=== PATIENT | male | born 1945 | race Caucasian/White ===

== ENCOUNTER 2016-11-24 17:20 | Inpatient (IN) | payer OTHER, MEDICARE ==
[~2016-11-24] VITALS: Ht 168.9 cm; Wt 72.0 kg
[2016-11-24] VITALS (7 sets, daily range): BP systolic 124–161; BP diastolic 60–84; PULSE 59–71; RESP 18–20; TEMP 96–98; O2SAT 95–99
[~2016-11-24 17:20] MED LIST: ASPI81TA82 PO; BACT800T5 PO; DOXY100T PO; ENAL5TAB98 PO; FURO1TAB93 PO; HYDR-3533 PO; IPRAAER INH; METO50TA PO; NIAC500T18 PO; ROSU40 PO; SPIRCAP INH; SYNT88TA PO
[2016-11-24] MEDS ORDERED: METO50TA PO (17:32)
[2016-11-24] MEDS ORDERED: ASPI1TAB69 PO (17:32)
[2016-11-24] MEDS ORDERED: ROSU20 PO (17:32)
[2016-11-24] MEDS ORDERED: ENAL5TAB PO (17:32)
[2016-11-24] MEDS ORDERED: FURO1TAB60 PO (17:32)
[2016-11-24] MEDS ORDERED: SYNT88TA PO (17:32)
[2016-11-24] MEDS ORDERED: NIAC500T5 PO (17:32)
[2016-11-24] MEDS ORDERED: HYDR-3533 PO (17:32)
[2016-11-24] MEDS ORDERED: IPRAAER INH (17:32)
[2016-11-24] MEDS ORDERED: SPIRCAP INH (17:32)
[2016-11-24] MEDS ORDERED: SODIUM CHLORIDE 0.9% FLUSH 10 ML FLUSH IVF PRN (17:45)
--- NOTE | 2016-11-24 17:48 | PD ---
HPI Chief Complaint: Respiratory Symptoms Time Seen by Provider: 17:43 Travel History International Travel<30 days: No Contact w/Intl Traveler<30days: No Traveled to known affect area: No History of Present Illness HPI 71-year-old male with history of cardiac issues status post CABG, hypertension, COPD, CHF, presents to the ER today because he states that he has been having syncopal episodes with dyspnea on exertion, states that it had occurred several days ago and he had talked to his primary care physician and was told to come to the ER. He is continued to have coughing and dyspnea on exertion which she states has become a baseline for him. He denies any current chest pains, fevers , or any other symptoms. Modifying Factors: None Associated Signs & Symptoms: Dyspnea on exertion, shortness of breath, syncope, coughing Risk Factors: Cardiac history, COPD, CHF PFSH Past Medical History Arthritis: Yes Asthma: No Autoimmune Disease: No Blood Disorders: Yes Anxiety: Yes Depression: No Heart Rhythm Problems: Yes Cancer: No Cardiac Catheterization: Yes Cardiovascular Problems: Yes (ACID) High Cholesterol: Yes Chemotherapy: No Chest Pain: Yes Congestive Heart Failure: Yes COPD: Yes Cerebrovascular Accident: No Coronary Artery Disease: Yes Diabetes: Yes Patient Takes Glucophage: No Diminished Hearing: No Deep Vein Thrombosis: Yes Endocrine: Yes Gastrointestinal Disorders: Yes GERD: No Glaucoma: No Genitourinary: No Headaches: No Hepatitis: No Hiatal Hernia: No Hypertension: Yes Immune Disorder: No Implanted Vascular Access Dvce: Yes Kidney Stones: No Musculoskeletal: Yes (CRAMPS IN LEGS) Neurologic: No Psychiatric: No Reproductive: No Respiratory: Yes (COPD) Immunizations Current: Yes Myocardial Infarction: Yes Radiation Therapy: No Renal Failure: No Seizures: No Sickle Cell Disease: No Sleep Apnea: No Thyroid Disease: Yes Ulcer: No ?: Not Past Surgical History Abdominal Surgery: Yes (RIGHT INGUINAL HERNIA REPAIR) AICD: No Arteriovenous Shunt: No Body Medical Devices: PACER/DEFIBRILLATOR Cardiac Surgery: Yes (CARDIAC BIPASS 2004,DEFIB/PACER) Coronary Artery Bypass Graft: Yes Ear Surgery: No Endocrine Surgery: No Eye Surgery: No Genitourinary Surgery: No Gynecologic Surgery: No Joint Replacement: No Oral Surgery: No Pacemaker: Yes (V-[address] [facility] [facility] #[id number]; DR.HANSCY MANE) Thoracic Surgery: Yes (MULTI-VESSEL CABG) Other Surgery: Yes (HERNIA OPEN HEART, ) Social History Alcohol Use: Yes (OCCASSIONAL) Tobacco Use: No (quit 2012) Substance Use: No Allergies-Medications (Allergen,Severity, Reaction): Coded Allergies: MRI PRECAUTION (Verified Adverse Reaction, Severe, CARDIAC PACEMAKER-07/06-ABD-JA, 11/04/15) Reported Meds & Prescriptions Reported Meds & Active Scripts Active Reported Spiriva Handihaler (Tiotropium Inh) 18 Mcg Cap 18 Mcg INH DAILY 1 capsule = 18 mcg Synthroid (Levothyroxine Sodium) 88 Mcg Tab 88 Mcg PO DAILY Crestor (Rosuvastatin Calcium) 20 Mg Tab 20 Mg PO DAILY Niacin 500 Mg Tab 500 Mg PO DAILY Metoprolol Tartrate 50 Mg Tab 50 Mg PO DAILY Combivent Respimat Inh (Ipratropium-Albuterol Inh) 20-100 Senior Care/Act Aero 1 Puff INH QID Lortab (Hydrocodone-Acetaminophen) 5-325 Mg Tab 1 Tab PO Q6H PRN Lasix (Furosemide) 40 Mg Tab 40 Mg PO DAILY Enalapril (Enalapril Maleate) 5 Mg Tab 5 Mg PO DAILY Aspirin 81 Mg Tabdr 81 Mg PO DAILY Review of Systems Except as stated in HPI: all other systems reviewed are Neg Physical Exam Narrative GENERAL: Well-developed elderly white male patient currently in mild respiratory distress. Awake and oriented 3. SKIN: Focused skin assessment warm/dry. HEAD: Atraumatic. Normocephalic. EYES: Pupils equal and round. No scleral icterus. No injection or drainage. ENT: No nasal bleeding or discharge. Mucous membranes pink and moist. NECK: Trachea midline. Supple. CARDIOVASCULAR: Regular rate and rhythm. No murmur appreciated. RESPIRATORY: Mild accessory muscle use. Breath sounds are decreased throughout but I hear less breath sounds on the left compared to the right, crackles at the left base. GASTROINTESTINAL: Abdomen soft, non-tender, nondistended. Hepatic and splenic margins not palpable. MUSCULOSKELETAL: No obvious deformities. No clubbing. No cyanosis. No edema. NEUROLOGICAL: Awake and alert. No obvious cranial nerve deficits. Motor grossly within normal limits. Normal speech. PSYCHIATRIC: Appropriate mood and affect; insight and judgment normal. Data Data Last Documented VS Vital Signs Date Time Temp Pulse Resp B/P Pulse Ox O2 Delivery O2 Flow Rate FiO2 11/24/16 17:53 66 18 124/60 97 Room Air 11/24/16 17:37 2 11/24/16 17:32 97.9 Orders Complete Blood Count With Diff (11/24/16 17:43) Comprehensive Metabolic Panel (11/24/16 17:43) B-Type Natriuretic Peptide (11/24/16 17:43) Act Partial Throm Time (Ptt) (11/24/16 17:43) Prothrombin Time / Inr (Pt) (11/24/16 17:43) Ckmb (Isoenzyme) Profile (11/24/16 17:43) Troponin I (11/24/16 17:43) Blood Culture (11/24/16 17:43) Iv Access Insert/Monitor (11/24/16 17:43) Electrocardiogram (11/24/16 17:43) Ecg Monitoring (11/24/16 17:43) Oximetry (11/24/16 17:43) Oxygen Administration (11/24/16 17:43) Chest, Single Ap (11/24/16 17:43) Sodium Chloride 0.9% Flush (Ns Flush) (11/24/16 17:45) Consult Cardiology (11/24/16 ) Nitroglycerin 2% Oint (Nitroglycerin 2% (11/24/16 18:45) Furosemide Inj (Lasix Inj) (11/24/16 18:45) (Hub Use Only)Inp Phy Cons/Ref (11/24/16 ) Labs Laboratory Tests Test 11/24/16 17:52 White Blood Count 5.9 TH/MM3 Red Blood Count 5.67 MIL/MM3 Hemoglobin 14.9 GM/DL Hematocrit 47.1 % Mean Corpuscular Volume 83.1 FL Mean Corpuscular Hemoglobin 26.3 PG Mean Corpuscular Hemoglobin 31.7 % Concent Red Cell Distribution Width 16.8 % Platelet Count 148 TH/MM3 Mean Platelet Volume 8.9 FL Neutrophils (%) (Auto) 69.4 % Lymphocytes (%) (Auto) 16.8 % Monocytes (%) (Auto) 6.9 % Eosinophils (%) (Auto) 6.4 % Basophils (%) (Auto) 0.5 % Neutrophils # (Auto) 4.1 TH/MM3 Lymphocytes # (Auto) 1.0 TH/MM3 Monocytes # (Auto) 0.4 TH/MM3 Eosinophils # (Auto) 0.4 TH/MM3 Basophils # (Auto) 0.0 TH/MM3 CBC Comment DIFF FINAL Differential Comment Prothrombin Time 12.0 SEC Prothromb Time International 1.1 RATIO Ratio Activated Partial 27.9 SEC Thromboplast Time Sodium Level 144 MEQ/L Potassium Level 3.6 MEQ/L Chloride Level 108 MEQ/L Carbon Dioxide Level 28.0 MEQ/L Anion Gap 8 MEQ/L Blood Urea Nitrogen 22 MG/DL Creatinine 1.50 MG/DL Estimat Glomerular Filtration 46 ML/MIN Rate Random Glucose 269 MG/DL Calcium Level 8.5 MG/DL Total Bilirubin 0.8 MG/DL Aspartate Amino Transf 23 U/L (AST/SGOT) Alanine Aminotransferase 18 U/L (ALT/SGPT) Alkaline Phosphatase 123 U/L Total Creatine Kinase 59 U/L Troponin I 0.03 NG/ML B-Type Natriuretic Peptide 896 PG/ML Total Protein 6.5 GM/DL Albumin 3.0 GM/DL MDM Medical Decision Making Medical Screen Exam Complete: Yes Emergency Medical Condition: Yes Medical Record Reviewed: Yes Interpretation(s) Initial EKG shows paced rhythm with ST depressions in 2, 3, aVF and V5 through V6. There is a mild ST elevation notable in 1 and aVL. Laboratory Tests Test 11/24/16 17:52 Mean Corpuscular Hemoglobin 26.3 PG (27.0-34.0) Mean Corpuscular Hemoglobin 31.7 % Concent (32.0-36.0) Platelet Count 148 TH/MM3 (150-450) Eosinophils (%) (Auto) 6.4 % (0.0-4.0) Prothrombin Time 12.0 SEC (9.8-11.6) Chloride Level 108 MEQ/L (98-107) Blood Urea Nitrogen 22 MG/DL (7-18) Creatinine 1.50 MG/DL (0.60-1.30) Estimat Glomerular Filtration 46 ML/MIN (>89) Rate Random Glucose 269 MG/DL (74-106) Alkaline Phosphatase 123 U/L (45-117) B-Type Natriuretic Peptide 896 PG/ML (0-100) Albumin 3.0 GM/DL (3.4-5.0) Differential Diagnosis Coughing, dyspnea on exertion, shortness of breath, syncopeworsening COPD exacerbation versus CHF versus pneumonia versus dysrhythmias versus ACS Narrative Course EKG does show some ST depressions and abnormal ST segments in 1 and aVL. Case was discussed with Dr. Phelps who states that considering that the patient is a ventricularly paced, EKG is not reliable indicator of VA and she would not consider this an ST elevation VA. Lab work shows no signs of cardiac enzyme elevations. His BNP is fairly elevated. Patient initially had been given nebulizers by EMS with some improvement in breathing symptoms. At this point, patient was also given Lasix and nitroglycerin in the ER for underlying CHF. My plan would be to admit the patient for further evaluation and treatment of syncope as well. Case is discussed with Dr. Carrasco for admission. Diagnosis Primary Impression: Syncope Additional Impression: Congestive heart failure (CHF) Admitting Information Admitting Physician Requests: Admit Onel Mahmood MD November 24, 2016 17:48
[2016-11-24 18:15] LABS: CHLORIDE 108 MEQ/L (98-107); POTASSIUM 3.6 MEQ/L (3.5-5.1); SODIUM (NA) 144 MEQ/L (136-145)
[2016-11-24 18:19] LABS: ANION GAP 8 MEQ/L (5-15); BLOOD UREA NITROGEN 22 MG/DL (7-18)
[2016-11-24 18:21] LABS: APTT (PATIENT) 27.9 SEC (24.3-30.1); INTERNATIONAL NORMALIZED RATIO 1.1 RATIO
[2016-11-24 18:22] LABS: ALT (GPT) 18 U/L (12-78); AST (GOT) 23 U/L (15-37)
[2016-11-24 18:23] LABS: GLOMERULAR FILTRATION RATE 46 ML/MIN (>89)
[2016-11-24 18:24] LABS: TOTAL BILIRUBIN ADULT 0.8 MG/DL (0.2-1.0)
[2016-11-24 18:25] LABS: ALKALINE PHOSPHATASE 123 U/L (45-117)
[2016-11-24 18:40] LABS: AUTOMATED NEUTROPHIL # 4.1 TH/MM3 (1.8-7.7); BASOPHIL % 0.5 % (0.0-2.0); EOSINOPHIL # 0.4 TH/MM3 (0-0.4); EOSINOPHIL % 6.4 % (0.0-4.0); HEMATOCRIT 47.1 % (39.0-51.0); HEMO FLAGS DIFF FINAL; LYMPH % 16.8 % (9.0-44.0); MEAN CELL VOLUME 83.1 FL (80.0-100.0); MEAN CORPUSCULAR HEMOGLOBIN 26.3 PG (27.0-34.0); MEAN CORPUSCULAR HGB CONC 31.7 % (32.0-36.0); MONO % 6.9 % (0.0-8.0); NEUT % 69.4 % (16.0-70.0); PLATELET COUNT 148 TH/MM3 (150-450); RED BLOOD COUNT 5.67 MIL/MM3 (4.50-5.90); RED CELL DISTRIBUTION WIDTH 16.8 % (11.6-17.2); WHITE BLOOD COUNT 5.9 TH/MM3 (4.0-11.0)
[2016-11-24] MEDS ORDERED: FUROSEMIDE 20 MG/2 ML VIAL IV PUSH ONE (18:45)
[2016-11-24] MEDS ORDERED: NITROGLYCERIN 2% OINT 1 GM PACKET TOPICAL ONE (18:45)
[2016-11-24 18:46] LABS: CREATINE KINASE 59 U/L (39-308)
--- NOTE | 2016-11-24 18:46 | RADHPO ---
EXAM DATE/TIME: 11/24/2016 18:01 [facility] COMPARISON: CHEST SINGLE AP, July 09, 2014, 7:43. INDICATIONS : Shortness of breath. MEDICAL HISTORY : Chronic obstructive pulmonary disease. Congestive heart failure. SURGICAL HISTORY : CABG. Pacemaker. ENCOUNTER: Initial ACUITY: 1 week PAIN SCORE: 0/10 LOCATION: Bilateral cranial FINDINGS: There are postoperative changes of median sternotomy. Pacer leads overlie right atrium and right vent ricle. Cardiomegaly. Minimal interstitial prominence could represent some interstitial edema. No sign ificant effusion. No pneumothorax. CONCLUSION: 1. Minimal interstitial edema. No effusion. No pneumothorax. Cardiomegaly. Norm Lenz MD on November 24, 2016 at 18:38 Board Certified Radiologist. This report was verified electronically.
[2016-11-24] MEDS ORDERED: NALOXONE HCL 0.4 MG/ML AMP IV PRN (20:00)
[2016-11-24] MEDS ORDERED: SODIUM CHLORIDE 0.9% FLUSH 10 ML FLUSH IV FLUSH PRN (20:00)
[2016-11-24] MEDS ORDERED: RESP: IPRATROPIUM 0.5 MG/2.5 ML NEB NEB PRN (20:00)
[2016-11-24] MEDS: RESP: IPRATROPIUM 0.5 MG/2.5 ML NEB NEB SCH (21:26)
[2016-11-24] MEDS: SODIUM CHLORIDE 0.9% FLUSH 10 ML FLUSH IV FLUSH SCH (23:30)
[2016-11-25] VITALS: BP 145/77; PULSE 60; RESP 20; TEMP 97.8; O2SAT 95
[2016-11-25] MEDS ORDERED: GLUCAGON 1 MG/ML VIAL OTHER PRN (00:30)
[2016-11-25] MEDS ORDERED: DEXTROSE 50% IN WATER 50 ML VIAL(D50) IV PRN (00:30)
[2016-11-25] MEDS ORDERED: ENALAPRILAT 2.5 MG/2 ML VIAL IV PUSH PRN (00:30)
[2016-11-25] MEDS ORDERED: METOPROLOL TARTRATE 50 MG TAB PO ONE (00:45)
[2016-11-25] MEDS ORDERED: ACETAMINOPHEN/HYDROcodone 325 MG/5 MG TAB PO PRN (00:45)
[2016-11-25] MEDS ORDERED: POTASSIUM CHLORIDE 20 MEQ CONTROLLED RELEASE TAB PO ONE (01:00)
[2016-11-25] MEDS: RESP: IPRATROPIUM 0.5 MG/2.5 ML NEB NEB SCH ×2 (03:20→09:22)
[2016-11-25 04:00] VITALS: BP 150/89; PULSE 60; RESP 20; TEMP 98; O2SAT 96
[2016-11-25] MEDS ORDERED: LEVOTHYROXINE SODIUM 88 MCG TAB PO SCH (06:00)
[2016-11-25] MEDS: INSULIN ASPART SUPPLEMENTAL SCALE SQ SCH ×2 (06:42→11:00)
[2016-11-25 07:51] LABS: AUTOMATED NEUTROPHIL # 4.5 TH/MM3 (1.8-7.7); BASOPHIL % 0.7 % (0.0-2.0); EOSINOPHIL # 0.5 TH/MM3 (0-0.4); EOSINOPHIL % 6.5 % (0.0-4.0); HEMATOCRIT 46.8 % (39.0-51.0); HEMO FLAGS DIFF FINAL; LYMPH % 19.2 % (9.0-44.0); LYMPHOCYTE # 1.3 TH/MM3 (1.0-4.8); MEAN CELL VOLUME 82.2 FL (80.0-100.0); MEAN CORPUSCULAR HGB CONC 31.7 % (32.0-36.0); MONO % 10.3 % (0.0-8.0); NEUT % 63.3 % (16.0-70.0); PLATELET COUNT 154 TH/MM3 (150-450); RED BLOOD COUNT 5.69 MIL/MM3 (4.50-5.90); RED CELL DISTRIBUTION WIDTH 15.8 % (11.6-17.2)
[2016-11-25 08:00] VITALS: BP 132/83; PULSE 66; RESP 17; TEMP 98.3; O2SAT 93
[2016-11-25 08:00] LABS: POTASSIUM 4.2 MEQ/L (3.5-5.1)
[2016-11-25] MEDS ORDERED: FUROSEMIDE 40 MG/4 ML VIAL IV PUSH SCH (09:00)
[2016-11-25] MEDS ORDERED: FUROSEMIDE 40 MG TAB PO SCH (09:00)
[2016-11-25] MEDS ORDERED: ASPIRIN EC 81 MG TABEC PO SCH (09:00)
[2016-11-25] MEDS ORDERED: POTASSIUM CHLORIDE 20 MEQ CONTROLLED RELEASE TAB PO SCH (09:00)
[2016-11-25] MEDS ORDERED: ENALAPRIL MALEATE 5 MG TAB PO SCH (09:00)
[2016-11-25] MEDS ORDERED: METOPROLOL TARTRATE 50 MG TAB PO SCH (09:00)
[2016-11-25] MEDS ORDERED: ATORVASTATIN 40 MG TAB PO SCH (09:00)
[2016-11-25] MEDS: SODIUM CHLORIDE 0.9% FLUSH 10 ML FLUSH IV FLUSH SCH (09:21)
--- NOTE | 2016-11-25 09:24 | MB ---
cc: ANNA VILLAR MD DATE OF CONSULTATION 11/25/2016 REASON FOR CONSULTATION CHF HISTORY OF PRESENT ILLNESS Mr. Vidal is a 71-year-old [place] who is a patient of my partner. He presented with progressive shortness of breath. He has a known ischemic cardiomyopathy with an EF of 25-30%. The patient reports that he was in [facility] last month and when discharged, he tried to have his relative go to the [place] to get his medications filled, which was unsuccessful. Consequently he has been without some of his medications and again had progressive shortness of breath and marked edema. He notes today that he is essentially back to baseline. He denies any chest pain to me. PAST MEDICAL HISTORY Significant for: 1. CHF 2. COPD 3. Hypertension 4. Does have a history of previous CABG with severe three-vessel yurok disease. He had a patent HINOJOSA to LAD The LAD occluded just distal to the anastomotic site. There was total occlusion of the SVG to the OM and widely patent graft to the PDA in June of 2013. 5. He does not have a history of ICD. OUTPATIENT MEDICATIONS Reported include: 1. Synthroid 2. Crestor 3. Crestor 4. Niacin 5. Metoprolol 6. Combivent 7. Lortab 8. Lasix 9. Enalapril 10. Aspirin REVIEW OF SYSTEMS Except as mentioned in the HPI, all 12 systems are negative. FAMILY HISTORY Noncontributory PHYSICAL EXAM VITAL SIGNS: 98.0, 60, 20, 150/89. GENERAL: In general, he is a well-appearing man who is in no apparent distress. NECK: His neck is free from JVD. LUNGS: The lungs are bilaterally clear to auscultation. CARDIOVASCULAR: On examination, he has a normal S1 and S2. I did not appreciate any murmurs, rubs or gallops. ABDOMEN: Soft. EXTREMITIES: Free from edema. LABORATORY VALUES Significant for a BNP of 896 with a creatinine of 1.5 and serial troponins of 0.03/0.03. IMPRESSION Acute on chronic heart failure - This is secondary to noncompliance with his medications. He has done well with some IV Lasix. I will convert him to p.o. meds. I did instruct him that he needs to take his prescriptions in with his cardiology consult and discharge summary to his primary at the [place] to assist with his medications through the [facility]. It is reasonable for him to be discharged if he is stable after his a.m. meds. We will need to obtain an echo also prior to discharge. CAD - The patient does appear reasonably stable. CKD - This is also confounding into his heart failure and likely does create a cardiorenal component making his management that much more difficult. Anna Villar M.D. ELISA /8:03 AM /9:13 AM
[2016-11-25 09:26] VITALS: O2SAT 95
--- NOTE | 2016-11-25 10:03 | RADHPO ---
EXAM DATE/TIME: 11/25/2016 08:13 [facility] COMPARISON: US CAROTID ARTERIES, July 04, 2009, 16:24. INDICATIONS : Syncope. MEDICAL HISTORY : Hypercholesterolemia. Myocardial infarction. Chronic obstructive pulmonary disease. CAD. CHF. Arthrit is. SURGICAL HISTORY : Pacemaker. Cardiac cath. Hernia repair. ENCOUNTER: Initial ACUITY: 1 day PAIN SCORE: 1/10 LOCATION: Bilateral neck PEAK SYSTOLIC VELOCITIES (cm/sec): ICA/CCA RATIO: Right: 1.9 Left: 1.3 ICA: Right: 156 Left: 0 CCA: Right: 81 Left: 40 ECA: Right: 98 Left: 124 VERTEBRAL: Right: 69 antegrade Left: 48 retrograde Elevated flow velocities and ICA/CCA ratios have been found to correlate with increased degrees of vessel stenosis, calculated as percentage of diameter relative to a normal segment of distal ICA/CCA FINDINGS: RIGHT CAROTID: Minimal progression of the disease on the right. LEFT CAROTID: The left internal carotid is noted to still be occluded. VERTEBRAL ARTERIES: Antegrade flow is seen in both vertebral arteries. MISCELLANEOUS: None. CONCLUSION: Minimal progression of disease in the right. Stenosis is not felt to be significant at this time. The left remains occluded. Jesus Crowley MD FACR on November 25, 2016 at 9:55 Board Certified Radiologist. This report was verified electronically.
--- NOTE | 2016-11-25 10:23 | EKG ---
Date Performed: 11/25/2016 Time Performed: 05:56:42 PTAGE: 71 years EKG: Ventricular pacing. Pacemaker rhythm - no further analysis Abnormal ECG PREVIOUS TRACING : 11/24/2016 23.47 DOCTOR: Maldonado Nj Interpretating Date/Time 11/25/2016 10:18:49
--- NOTE | 2016-11-25 10:25 | EKG ---
Date Performed: 11/24/2016 Time Performed: 23:47:50 PTAGE: 71 years EKG: Ventricular pacing. Pacemaker rhythm - no further analysis Abnormal ECG PREVIOUS TRACING : 11/24/2016 17.43 DOCTOR: Maldonado Nj Interpretating Date/Time 11/25/2016 10:21:12
--- NOTE | 2016-11-25 10:56 | EKG ---
Date Performed: 11/24/2016 Time Performed: 17:43:32 PTAGE: 71 years EKG: Ventricular pacing Pacemaker rhythm - no further analysis Abnormal ECG PREVIOUS TRACING : 07/09/2014 18.43 DOCTOR: Maldonado Nj Interpretating Date/Time 11/25/2016 10:55:31
[2016-11-25] MEDS ORDERED: predniSONE 20 MG TAB PO SCH (12:00)
[2016-11-25 12:02] VITALS: BP 128/78; PULSE 62; RESP 18; TEMP 98.2; O2SAT 94
--- NOTE | 2016-11-25 12:17 | HHI.HP ---
HPI Service [facility] Primary Care Physician [facility] Admission Diagnosis CHF exacerbation/syncope Diagnoses: Chief Complaint: Shortness of breath Travel History International Travel<30 Days: No Contact w/Intl Traveler <30 Da: No Traveled to Known Affected Are: No History of Present Illness Late entry. Patient seen around 8 AM 71-year-old male with a medical history significant for CAD status post CABG, COPD, hypertension, CHF presented to the emergency room with complaint of dyspnea with exertion. He reports that he was admitted to [facility] about a month ago. He was discharge on multiple heart medications but did not fill the prescriptions. Over the past 3 weeks he has been having worsening shortness of breath with exertion to the point that he passed out 3 times. Last time was about a week ago. He denies any chest pain. He has a wet cough but is unable to bring up anything. He denies fevers or chills. Initial workup in the emergency room consistent with CHF. He has received a dose of IV Lasix and is currently feeling better. Review of Systems Constitutional: DENIES: Fever, Chills Respiratory: COMPLAINS OF: Cough, Shortness of breath Cardiovascular: COMPLAINS OF: Syncope, DENIES: Chest pain, Lower Extremity Edema Gastrointestinal: DENIES: Nausea, Vomiting Except as stated in HPI: all other systems reviewed are Neg Past Family Social History Past Medical History Systolic congestive heart failure COPD Diabetes mellitus type 2 hypertension Hyperlipidemia Chronic kidney disease stage III GERD Past Surgical History CABG 2004 Biventricular AICD 2009 Reported Medications Reported Spiriva Handihaler (Tiotropium Inh) 18 Mcg Cap 18 Mcg INH DAILY 1 capsule = 18 mcg Synthroid (Levothyroxine Sodium) 88 Mcg Tab 88 Mcg PO DAILY Crestor (Rosuvastatin Calcium) 20 Mg Tab 20 Mg PO DAILY Niacin 500 Mg Tab 500 Mg PO DAILY Combivent Respimat Inh (Ipratropium-Albuterol Inh) 20-100 Long-Term/Act Aero 1 Puff INH QID Lortab (Hydrocodone-Acetaminophen) 5-325 Mg Tab 1 Tab PO Q6H PRN Aspirin 81 Mg Tabdr 81 Mg PO DAILY Allergies: Coded Allergies: MRI PRECAUTION (Verified Adverse Reaction, Severe, CARDIAC PACEMAKER-07/06-ABD-JA, 11/24/16) Family History Father with history of heart disease. Social History Patient reports he quit using tobacco in 2012. Admits to occasional alcohol. Denies illegal drug use. Physical Exam Vital Signs Vital Signs Date Time Temp Pulse Resp B/P Pulse Ox O2 Delivery O2 Flow Rate FiO2 11/25/16 09:26 95 21 11/25/16 08:00 98.3 66 17 132/83 93 11/25/16 04:00 98.0 60 20 150/89 96 11/25/16 00:00 97.8 60 20 145/77 95 11/24/16 21:26 95 21 11/24/16 20:45 96.0 59 20 161/84 95 11/24/16 20:35 60 20 160/75 95 11/24/16 19:40 98 Room Air 11/24/16 19:30 60 20 145/75 98 Nasal Cannula 1 11/24/16 19:00 20 99 Nasal Cannula 1 11/24/16 19:00 98.0 60 20 145/65 99 Nasal Cannula 1 11/24/16 17:53 66 18 124/60 97 Room Air 11/24/16 17:47 99 Room Air 11/24/16 17:37 98 Nasal Cannula 2 11/24/16 17:32 97.9 71 18 126/72 97 Physical Exam GENERAL: Patient appearing older than stated age in no apparent distress. SKIN: No rashes, ecchymoses or lesions. Cool and dry. HEAD: Atraumatic. Normocephalic. No temporal or scalp tenderness. EYES: Pupils equal round and reactive. Extraocular motions intact. No scleral icterus. No injection or drainage. ENT: Nose without bleeding, purulent drainage or septal hematoma. Throat without erythema, tonsillar hypertrophy or exudate. Uvula midline. Airway patent. NECK: Trachea midline. No JVD or lymphadenopathy. Supple, nontender, no meningeal signs. CARDIOVASCULAR: Regular rate and rhythm without murmurs, gallops, or rubs. RESPIRATORY: Diffuse expiratory wheezing. Diminished breath sounds at the bases. GASTROINTESTINAL: Abdomen soft, non-tender, nondistended. No hepato-splenomegaly , or palpable masses. No guarding. MUSCULOSKELETAL: Extremities without clubbing, cyanosis, or edema. No joint tenderness, effusion, or edema noted. No calf tenderness. Negative Homans sign bilaterally. NEUROLOGICAL: Awake and alert. Cranial nerves II through XII intact. Motor and sensory grossly within normal limits. Five out of 5 muscle strength in all muscle groups. Normal speech. Laboratory Laboratory Tests Test 11/24/16 11/24/16 11/25/16 17:52 23:45 07:02 White Blood Count 5.9 7.0 Red Blood Count 5.67 5.69 Hemoglobin 14.9 14.8 Hematocrit 47.1 46.8 Mean Corpuscular Volume 83.1 82.2 Mean Corpuscular Hemoglobin 26.3 26.0 Mean Corpuscular Hemoglobin 31.7 31.7 Concent Red Cell Distribution Width 16.8 15.8 Platelet Count 148 154 Mean Platelet Volume 8.9 8.5 Neutrophils (%) (Auto) 69.4 63.3 Lymphocytes (%) (Auto) 16.8 19.2 Monocytes (%) (Auto) 6.9 10.3 Eosinophils (%) (Auto) 6.4 6.5 Basophils (%) (Auto) 0.5 0.7 Neutrophils # (Auto) 4.1 4.5 Lymphocytes # (Auto) 1.0 1.3 Monocytes # (Auto) 0.4 0.7 Eosinophils # (Auto) 0.4 0.5 Basophils # (Auto) 0.0 0.0 CBC Comment DIFF FINAL DIFF FINAL Differential Comment Prothrombin Time 12.0 Prothromb Time International 1.1 Ratio Activated Partial 27.9 Thromboplast Time Sodium Level 144 143 Potassium Level 3.6 4.2 Chloride Level 108 108 Carbon Dioxide Level 28.0 26.0 Anion Gap 8 9 Blood Urea Nitrogen 22 23 Creatinine 1.50 1.40 Estimat Glomerular Filtration 46 50 Rate Random Glucose 269 101 Calcium Level 8.5 8.5 Total Bilirubin 0.8 Aspartate Amino Transf 23 (AST/SGOT) Alanine Aminotransferase 18 (ALT/SGPT) Alkaline Phosphatase 123 Total Creatine Kinase 59 49 53 Troponin I 0.03 0.03 0.03 B-Type Natriuretic Peptide 896 Total Protein 6.5 Albumin 3.0 Date/Time Procedure Status Source Growth 11/24/16 17:58 Aerobic Blood Culture - Preliminary Resulted Blood Peripheral NO GROWTH IN 1 DAY 11/24/16 17:58 Anaerobic Blood Culture - Preliminary Resulted Blood Peripheral NO GROWTH IN 1 DAY Result Diagram: 11/25/16 0702 11/25/16 0702 Imaging Last Impressions Carotid Artery Ultrasound 11/25/16 0000 Signed Impressions: Service Date/Time: Friday, November 25, 2016 08:13 - CONCLUSION: Minimal progression of disease in the right. Stenosis is not felt to be significant at this time. The left remains occluded. Jesus Crowley MD FACR Chest X-Ray 11/24/16 1743 Signed Impressions: Service Date/Time: Thursday, November 24, 2016 18:01 - CONCLUSION: 1. Minimal interstitial edema. No effusion. No pneumothorax. Cardiomegaly. Norm Lenz MD Assessment and Plan Problem List: (1) Acute on chronic systolic congestive heart failure ICD Code: I50.23 Status: Acute (2) Syncope ICD Code: R55 Status: Acute (3) Hypertension ICD Code: I10 Status: Chronic (4) Hyperlipidemia ICD Code: E78.5 Status: Chronic Assessment and Plan Acute on chronic systolic CHF: Previous EF of 25-30%. Status post IV Lasix in the emergency room. Much improved. Patient has been seen by cardiology, he has been transitioned to oral medication. An echocardiogram will be obtained and the patient is advised to follow-up outpatient. He was strongly counseled on need to be compliant with the medication. He states he will waste picker the prescriptions himself. - Continue with metoprolol, Lasix, and Vasotec. Probable COPD exacerbation: Patient is wheezing on exam. Short course of oral prednisone 40 mg 5 days. Symbicort and breathing treatments Syncope: Likely secondary to CHF. He does have known carotid artery stenosis on the left. Repeat carotid ultrasound shows some progression of right stenosis but not felt to be clinically significant. Treat heart failure as above. Advised outpatient follow-up. Hypertension, continue Vasotec, metoprolol. Hyperlipidemiaresume statin. Chronic kidney disease stage III-stable Hypothyroidismcontinue Synthroid Physician Certification 2 Midnight Certification Type: Admission for Inpatient Services Order for Inpatient Services The services are ordered in accordance with Medicare regulations or non- Medicare payer requirements, as applicable. In the case of services not specified as inpatient-only, they are appropriately provided as inpatient services in accordance with the 2-midnight benchmark. Estimated LOS (days): 2 days is the estimated time the patient will need to remain in the hospital, assuming treatment plan goals are met and no additional complications. Post-Hospital Plan: Home Chapito Gonzalez MD November 25, 2016 11:24
[2016-11-25] MEDS ORDERED: BUDESONIDE-FORMOTEROL 160/4.5 MCG INHALER INH SCH (13:00)
[2016-11-25] MEDS ORDERED: METO50TA PO (14:02)
[2016-11-25] MEDS ORDERED: FURO1TAB60 PO (14:02)
[2016-11-25] MEDS ORDERED: ENAL5TAB PO (14:02)
[2016-11-25] MEDS ORDERED: PRED20 PO (14:02)
[2016-11-25] MEDS ORDERED: SYMB160A INH (14:02)
--- NOTE | 2016-11-25 14:02 | HHI.DCPOC ---
Discharge Care Plan Diagnosis: (1) Acute on chronic systolic congestive heart failure (2) Diabetes mellitus, type 2 (3) Hypertension (4) Hyperlipidemia (5) Syncope Goals to Promote Your Health * To prevent worsening of your condition and complications * To maintain your health at the optimal level Directions to Meet Your Goals Take your medications as prescribed Follow your dietary instruction Follow activity as directed Keep your appointments as scheduled Take your immunizations and boosters as scheduled If your symptoms worsen call your PCP, if no PCP go to Urgent Care Center or Emergency Room Smoking is Dangerous to Your Health. Avoid second hand smoke Call the 24-hour hour crisis hotline for domestic abuse at Chapito Gonzalez MD November 25, 2016 14:02
--- NOTE | 2016-11-25 14:54 | HHI.FF ---
Face to Face Verification Diagnosis: (1) Acute on chronic systolic congestive heart failure (2) Hypertension (3) Hyperlipidemia (4) Syncope Home Health Nursing Order: Medical education CHF education Medication education-adverse effect I have seen patient Naresh Llanos YoungJr on 11/25/16. My clinical findings support the need for the requested home health care services because: Patient has SOB Deconditioned w/ increased weakness Med compliance is questionable I certify that my clinical findings support that this patient is homebound because: Need for psychosocial assistance Chapito Gonzalez MD November 25, 2016 14:54
--- NOTE | 2016-11-26 17:37 | EC ---
Study Study Date:11/25/2016 STUDY CONCLUSIONS SUMMARY - Left ventricle: The cavity size was dilated. Wall thickness was at the upper limits of normal. Systolic function was severely reduced by visual assessment. The estimated ejection fraction was in the range of 15% to 20%. Diffuse hypokinesis. - Aortic valve: Transvalvular velocity was increased less than expected, due to low cardiac output. There was mild stenosis. Mild to moderate regurgitation. Valve area: 1.04cm^2(VTI). Valve area: 1.17cm^2 (Vmax). - Mitral valve: Moderate to severe regurgitation. - Left atrium: The atrium was mildly to moderately dilated. - Tricuspid valve: Moderate regurgitation. - Pulmonic valve: Mild regurgitation. - Pulmonary arteries: Systolic pressure was severely increased. PA peak pressure: 70mm Hg (S). If LV function is below 40, please consider prescribing an ACEI or ARB or document rationale for non-use. PROCEDURE DATA STUDY STATUS: Elective. Procedure: Transthoracic echocardiography. Image quality was good. Scanning was performed from the parasternal, apical, and subcostal acoustic windows. Study completion: The patient tolerated the procedure well. Transthoracic echocardiography. M-mode, complete 2D, complete spectral Doppler, and color Doppler. Height: Height: 66in. Weight: Weight: 159.7lb. Body mass index: BMI: 25.8kg/m^2. Body surface area: BSA: 1.82m^2. Patient status: Inpatient. CARDIAC ANATOMY LEFT VENTRICLE: The cavity size was dilated. Wall thickness was at the upper limits of normal. Systolic function was severely reduced by visual assessment. The estimated ejection fraction was in the range of 15% to 20%. Diffuse hypokinesis. AORTIC VALVE: Trileaflet; normal thickness leaflets. Doppler: Transvalvular velocity was increased less than expected, due to low cardiac output. There was mild stenosis. Mild to moderate regurgitation. Valve area: 1.04cm^2(VTI). Indexed valve area: 0.57cm^2/m^2 (VTI). Valve area: 1.17cm^2 (Vmax). Indexed valve area: 0.64cm^2/m^2 (Vmax). Mean gradient: 3mm Hg (S). AORTA: Aortic root: The aortic root was normal in size. MITRAL VALVE: Structurally normal valve. Doppler: Transvalvular velocity was within the normal range. There was no evidence for stenosis. Moderate to severe regurgitation. Peak gradient: 4mm Hg (D). LEFT ATRIUM: The atrium was mildly to moderately dilated. RIGHT VENTRICLE: The cavity size was normal. Wall thickness was normal. PULMONIC VALVE: Doppler: Transvalvular velocity was within the normal range. There was no evidence for stenosis. Mild regurgitation. TRICUSPID VALVE: Structurally normal valve. Doppler: Transvalvular velocity was within the normal range. Moderate regurgitation. PULMONARY ARTERY: Systolic pressure was severely increased. RIGHT ATRIUM: The atrium was normal in size. PERICARDIUM: There was no pericardial effusion. SYSTEMIC VEINS: Inferior vena cava: The vessel was normal in size. Patient weight: 159.7lb _Ejection fraction:_ 65-75% _Fractional shortening:_ 32% up to 5Kg 5-11.5Kg 11.6-22.9Kg 23-45Kg 45-57Kg Aortic Root 7-13 <17 13-22 17-27 17-27 LA diam 6-13 <23 24-38 33-47 37-40 RVID 10-17 7-15 7-15 7-18 8-17 LVIDd 12-22 <32 24-38 33-47 37-40 LVPW 2-4 3-6 5-7 6-8 7-8 IVS 2-4 3-6 5-7 6-8 7-8 BASIC MEASUREMENTS ADULT NORMAL Left ventricle LV internal dimension, ED, chordal *60 mm 43-52 level, PLAX LV internal dimension, ES, chordal *55.1 mm 23-38 level, PLAX Fractional shortening, chordal level, *8 % >29 PLAX LV posterior wall thickness, ED 8.49 mm IVS/LVPW ratio, ED 0.95 <1.3 Ventricular septum Septal thickness, ED 8.05 mm Aortic valve Leaflet separation *13 mm 15-26 Aorta Root diameter, ED 33 mm Left atrium Anterior-posterior dimension 37 mm Anterior-posterior dimension index 2.03 cm/m^2 <2.2 BASIC MEASUREMENTS ADULT NORMAL Aortic valve Leaflet separation *13 mm 15-26 DOPPLER MEASUREMENTS ADULT NORMAL Main pulmonary artery Pressure, S *70 mm Hg =30 Aortic valve Peak velocity, S 126 cm/s Mean velocity, S 80.6 cm/s VTI, S 22.1 cm Mean gradient, S 3 mm Hg Valve area, VTI 1.04 cm^2 Valve area index, VTI 0.57 cm^2/m^2 Valve area, Vmax 1.17 cm^2 Valve area index, Vmax 0.64 cm^2/m^2 Mitral valve Peak E-wave velocity 96.7 cm/s Peak A-wave velocity 23.2 cm/s Deceleration time *134 ms 150-230 Peak gradient, D 4 mm Hg Peak E/A ratio 4.2 Tricuspid valve Regurgitant peak velocity 323 cm/s Peak RV-RA gradient, S 42 mm Hg Maximal regurgitant velocity 323 cm/s Systemic veins Estimated CVP 10 mm Hg Right ventricle RV pressure, S *71 mm Hg <30 Pulmonic valve Peak velocity, S 58.7 cm/s LEGEND: Mean values are shown as u=mean value. Asterisk (*) sharp values outside specified normal range. Prepared and signed by Maldonado Nj [id number]
== END 2016-11-25 15:16 | disposition home or self-care (01) | DRG 291 ==
LOC: PHED 17:20 → PHEDA 19:06 → PH3B 20:38
PROVIDERS: ADMIT Family Medicine; ATTEND Family Medicine
DX: I13.0 Hypertensive heart and chronic kidney disease with heart failure and stage 1 through stage 4 chronic kidney disease, or unspecified chronic kidney disease (principal); I50.23 Acute on chronic systolic (congestive) heart failure; E11.22 Type 2 diabetes mellitus with diabetic chronic kidney disease; I25.82 Chronic total occlusion of coronary artery; I25.810 Atherosclerosis of coronary artery bypass graft(s) without angina pectoris; N18.3 Chronic kidney disease, stage 3 (moderate); E78.5 Hyperlipidemia, unspecified; Z95.0 Presence of cardiac pacemaker; K21.9 Gastro-esophageal reflux disease without esophagitis; Z87.891 Personal history of nicotine dependence; I25.5 Ischemic cardiomyopathy; Z91.14 Patient's other noncompliance with medication regimen
CPT/HCPCS: 71010; 80048; 80053; 82550; 82948; 83880; 84484; 85025; 85610; 85730; 87040; 93005; 93306; 93880; 94640; 94664; 96374; J1940; J7512; J7644

== ENCOUNTER 2016-12-06 09:55 | Inpatient (IN) | payer OTHER, MEDICARE ==
[~2016-12-06] VITALS: Ht 170.2 cm; Wt 71.5 kg
[2016-12-06] VITALS (7 sets, daily range): BP systolic 101–126; BP diastolic 59–65; PULSE 59–95; RESP 16–19; TEMP 95.7–98.8; O2SAT 93–97
[~2016-12-06 09:55] MED LIST changes: +ASPI1TAB69 PO; -ASPI81TA82 PO; -BACT800T5 PO; -DOXY100T PO; +ENAL5TAB PO; -ENAL5TAB98 PO; +FURO1TAB60 PO; -FURO1TAB93 PO; -NIAC500T18 PO; +NIAC500T5 PO; +PRED20 PO; +ROSU20 PO; -ROSU40 PO; +SYMB160A INH
[2016-12-06] MEDS ORDERED: SLO-500T PO (10:39)
[2016-12-06] MEDS ORDERED: CEPH500C PO (10:39)
[2016-12-06] MEDS ORDERED: TRAM50TA PO (10:39)
[2016-12-06] MEDS ORDERED: METH8TAB3 PO (10:39)
[2016-12-06] MEDS ORDERED: IBUP200C PO (10:39)
[2016-12-06] MEDS ORDERED: LISI10TA3 PO (10:39)
[2016-12-06] MEDS ORDERED: FURO40TA PO (10:39)
[2016-12-06] MEDS ORDERED: ASPI81CH CHEW (10:42)
--- NOTE | 2016-12-06 10:55 | PD ---
HPI Chief Complaint: Skin Problem Time Seen by Provider: 10:41 Travel History International Travel<30 days: No Contact w/Intl Traveler<30days: No Traveled to known affect area: No History of Present Illness HPI 71-year-old male complains of pain and discharge from the buttock. Patient states that the symptoms started 4 days ago. Patient was seen at [facility] 4 days ago and given prescription for cephalexin 500 mg twice a day. Patient states that he has been taking antibiotics as directed. Patient denies any fever chills. Patient states that he has increasing pain and drainage from the right buttock today. Patient denies any recent injury. Patient has history hypertension, diabetes diet controlled, hyperlipidemia, hypothyroidism. Patient also history of CAD status post CABG and AICD placement, GERD, CHF, CVA, PTSD. PFSH Past Medical History Arthritis: Yes Asthma: No Autoimmune Disease: No Blood Disorders: Yes Anxiety: Yes Depression: No Heart Rhythm Problems: Yes Cancer: No Cardiac Catheterization: Yes Cardiovascular Problems: Yes (ACID) High Cholesterol: Yes Chemotherapy: No Chest Pain: Yes Congestive Heart Failure: Yes COPD: Yes Cerebrovascular Accident: Yes Coronary Artery Disease: Yes Diabetes: Yes (type 2 ) Patient Takes Glucophage: No Diminished Hearing: No Deep Vein Thrombosis: Yes Endocrine: Yes Gastrointestinal Disorders: Yes GERD: Yes Glaucoma: No Genitourinary: No Headaches: No Hepatitis: No Hiatal Hernia: No Hypertension: Yes Immune Disorder: No Implanted Vascular Access Dvce: Yes Kidney Stones: No Musculoskeletal: Yes Neurologic: No Psychiatric: Yes (PTSD ) Reproductive: No Respiratory: Yes (COPD) Integumentary: Yes (right buttock abcess ) Immunizations Current: No Migraines: No Myocardial Infarction: Yes Pneumonia: Yes Radiation Therapy: No Renal Failure: No Seizures: No Sickle Cell Disease: No Sleep Apnea: No Thyroid Disease: Yes Ulcer: No Influenza Vaccination: No Past Surgical History Abdominal Surgery: Yes (hernia repair) AICD: No Arteriovenous Shunt: No Body Medical Devices: PACER/DEFIBRILLATOR Cardiac Surgery: Yes (pacemaker / defib ) Coronary Artery Bypass Graft: Yes (x 3 ) Ear Surgery: No Endocrine Surgery: No Eye Surgery: No Genitourinary Surgery: No Gynecologic Surgery: No Joint Replacement: No Oral Surgery: No Pacemaker: Yes (pacer/defib ) Thoracic Surgery: No Tonsillectomy: Yes Other Surgery: Yes (HERNIA OPEN HEART, ) Family History Family Hypercholesterolemia: Yes Social History Alcohol Use: No Tobacco Use: No Substance Use: No Allergies-Medications (Allergen,Severity, Reaction): Coded Allergies: MRI PRECAUTION (Verified Adverse Reaction, Severe, CARDIAC PACEMAKER-07/06-CARLEE, 12/06/16) Reported Meds & Prescriptions Reported Meds & Active Scripts Active Symbicort Inh (Budesonide/Formoterol Fumarate) 160-4.5 Mcg/Act Aero 1 Puff INH Q12HR Metoprolol Tartrate 50 Mg Tab 50 Mg PO DAILY Reported Aspirin 81 Mg Chew 81 Mg CHEW DAILY Ibuprofen 200 Mg Cap 200 Mg PO DAILY PRN Slo-Niacin (Niacin) 500 Mg Tab 500 Mg PO DAILY Cephalexin 500 Mg Cap 500 Mg PO Q12H Lisinopril 10 Mg Tab 10 Mg PO DAILY Tramadol (Tramadol HCl) 50 Mg Tab 50 Mg PO Q8H PRN Furosemide 40 Mg Tab 40 Mg PO DAILY Synthroid (Levothyroxine Sodium) 88 Mcg Tab 88 Mcg PO DAILY Crestor (Rosuvastatin Calcium) 20 Mg Tab 20 Mg PO DAILY Combivent Respimat Inh (Ipratropium-Albuterol Inh) 20-100 Skilled Nursing/Act Aero 1 Puff INH QID Review of Systems General / Constitutional: No: Fever Eyes: No: Visual changes HENT: No: Headaches Cardiovascular: No: Chest Pain or Discomfort Respiratory: No: Shortness of Breath Gastrointestinal: No: Abdominal Pain Genitourinary: No: Dysuria Musculoskeletal: No: Pain Skin: No Rash Neurologic: No: Weakness Psychiatric: No: Depression Endocrine: No: Polydipsia Hematologic/Lymphatic: No: Easy Bruising Physical Exam Narrative GENERAL: Well-nourished, well-developed patient. SKIN: Focused skin assessment warm/dry. HEAD: Normocephalic. EYES: No scleral icterus. No injection or drainage. NECK: Supple, trachea midline. No JVD or lymphadenopathy. CARDIOVASCULAR: Regular rate and rhythm without murmurs, gallops, or rubs. RESPIRATORY: Breath sounds equal bilaterally. No accessory muscle use. GASTROINTESTINAL: Abdomen soft, non-tender, nondistended. MUSCULOSKELETAL: No cyanosis, or edema. BACK: Nontender without obvious deformity. No CVA tenderness. Neurologic exam normal. Patient has several ulcerations lesions on the right buttock area with soft tissue redness swelling. Moderate amount of serosanguineous discharge from the ulcers. Data Data Last Documented VS Vital Signs Date Time Temp Pulse Resp B/P Pulse Ox O2 Delivery O2 Flow Rate FiO2 12/06/16 11:09 93 Room Air 12/06/16 10:25 60 16 12/06/16 10:13 97.4 118/61 Orders Electrocardiogram (12/06/16 10:47) Complete Blood Count With Diff (12/06/16 10:47) Comprehensive Metabolic Panel (12/06/16 10:47) Prothrombin Time / Inr (Pt) (12/06/16 10:47) Act Partial Throm Time (Ptt) (12/06/16 10:47) Blood Culture (12/06/16 10:47) Urinalysis - C+S If Indicated (12/06/16 10:47) Chest, Single Ap (12/06/16 10:47) Iv Access Insert/Monitor (12/06/16 10:47) Ecg Monitoring (12/06/16 10:47) Oximetry (12/06/16 10:47) Wound Culture And Gram Stain (12/06/16 10:47) Labs Laboratory Tests Test 12/06/16 12/06/16 10:45 11:30 White Blood Count 12.7 TH/MM3 Red Blood Count 5.64 MIL/MM3 Hemoglobin 15.0 GM/DL Hematocrit 46.7 % Mean Corpuscular Volume 82.9 FL Mean Corpuscular Hemoglobin 26.6 PG Mean Corpuscular Hemoglobin 32.1 % Concent Red Cell Distribution Width 17.3 % Platelet Count 177 TH/MM3 Mean Platelet Volume 8.6 FL Neutrophils (%) (Auto) 84.5 % Lymphocytes (%) (Auto) 5.2 % Monocytes (%) (Auto) 6.9 % Eosinophils (%) (Auto) 2.8 % Basophils (%) (Auto) 0.6 % Neutrophils # (Auto) 10.8 TH/MM3 Lymphocytes # (Auto) 0.7 TH/MM3 Monocytes # (Auto) 0.9 TH/MM3 Eosinophils # (Auto) 0.4 TH/MM3 Basophils # (Auto) 0.1 TH/MM3 CBC Comment DIFF FINAL Differential Comment Prothrombin Time 11.7 SEC Prothromb Time International 1.1 RATIO Ratio Activated Partial 30.8 SEC Thromboplast Time Sodium Level 138 MEQ/L Potassium Level 4.7 MEQ/L Chloride Level 102 MEQ/L Carbon Dioxide Level 24.5 MEQ/L Anion Gap 12 MEQ/L Blood Urea Nitrogen 28 MG/DL Creatinine 1.25 MG/DL Estimat Glomerular Filtration 57 ML/MIN Rate Random Glucose 125 MG/DL Calcium Level 9.1 MG/DL Total Bilirubin 1.1 MG/DL Aspartate Amino Transf 43 U/L (AST/SGOT) Alanine Aminotransferase 31 U/L (ALT/SGPT) Alkaline Phosphatase 137 U/L Total Protein 7.1 GM/DL Albumin 2.6 GM/DL Urine Color YELLOW Urine Turbidity CLEAR Urine pH 5.5 Urine Specific [place] 1.018 Urine Protein 30 mg/dL Urine Glucose (UA) NEG mg/dL Urine Ketones NEG mg/dL Urine Occult Blood NEG Urine Nitrite NEG Urine Bilirubin NEG Urine Urobilinogen LESS THAN 2.0 MG/DL Urine Leukocyte Esterase NEG Urine RBC LESS THAN 1 /hpf Urine WBC 1 /hpf Microscopic Urinalysis Comment CULT NOT INDICATED MDM Medical Decision Making Medical Screen Exam Complete: Yes Emergency Medical Condition: Yes Interpretation(s) Last Impressions Chest X-Ray 12/06/16 1047 Signed Impressions: Service Date/Time: Tuesday, December 06, 2016 10:52 - CONCLUSION: No definite acute finding is identified. The mild interstitial changes described previously have improved or resolved. Ramiro Mcdaniels MD 11:52 AM. CBC WBC 12.7. 84 neutrophil. UA is negative. 12:07 PM. BUN 28. Total bili 1.1. AST 43. Alkaline phosphatase 137. Differential Diagnosis Differential diagnosis including cellulitis, abscess. Narrative Course 71-year-old male with cellulitis and draining ulcers right buttock. Normal saline solution 70 cc an hour. Vancomycin 1 g IV. Zosyn 3.375 g IV given. Diagnosis Primary Impression: Cellulitis Qualified Code: L03.317 - Cellulitis of buttock Admitting Information Admitting Physician Requests: Admit Cody Vaca MD December 06, 2016 10:55
--- NOTE | 2016-12-06 11:10 | RADRPT ---
EXAM DATE/TIME: 12/06/2016 10:52 [facility] COMPARISON: CHEST SINGLE AP, November 24, 2016, 18:01. INDICATIONS : Short of breath. MEDICAL HISTORY : Chronic obstructive pulmonary disease. Congestive heart failure. SURGICAL HISTORY : CABG. ENCOUNTER: Initial ACUITY: 1 day PAIN SCORE: 0/10 LOCATION: Bilateral chest FINDINGS: Portable AP view the chest demonstrates cardiac silhouette size the upper limits for normal in this p atient post median sternotomy. Cardiac pacing device/AICD is present. Multiple EKG lines overlie the patient. No effusion, consolidation, or pneumothorax is identified. The mild interstitial changes colten cribed previously have improved or questionably resolved. CONCLUSION: No definite acute finding is identified. The mild interstitial changes described previously have impr roberth or resolved. Ramiro Mcdaniels MD on December 06, 2016 at 11:08 Board Certified Radiologist. This report was verified electronically.
[2016-12-06 11:34] LABS: AUTOMATED NEUTROPHIL # 10.8 TH/MM3 (1.8-7.7); BASOPHIL # 0.1 TH/MM3 (0-0.2); BASOPHIL % 0.6 % (0.0-2.0); EOSINOPHIL # 0.4 TH/MM3 (0-0.4); EOSINOPHIL % 2.8 % (0.0-4.0); HEMATOCRIT 46.7 % (39.0-51.0); HEMO FLAGS DIFF FINAL; LYMPH % 5.2 % (9.0-44.0); LYMPHOCYTE # 0.7 TH/MM3 (1.0-4.8); MEAN CELL VOLUME 82.9 FL (80.0-100.0); MEAN CORPUSCULAR HEMOGLOBIN 26.6 PG (27.0-34.0); MEAN CORPUSCULAR HGB CONC 32.1 % (32.0-36.0); MONO % 6.9 % (0.0-8.0); NEUT % 84.5 % (16.0-70.0); PLATELET COUNT 177 TH/MM3 (150-450); RED BLOOD COUNT 5.64 MIL/MM3 (4.50-5.90); RED CELL DISTRIBUTION WIDTH 17.3 % (11.6-17.2); WHITE BLOOD COUNT 12.7 TH/MM3 (4.0-11.0)
[2016-12-06 11:43] LABS: APTT (PATIENT) 30.8 SEC (24.3-30.1); INTERNATIONAL NORMALIZED RATIO 1.1 RATIO; PROTHROMBIN TIME - PATIENT 11.7 SEC (9.8-11.6)
[2016-12-06 11:45] LABS: BLOOD, URINE NEG (NEG); COMMENT (UR) CULT NOT INDICATED; CULTURE IF INDICATED CULT NOT INDICATED; GLUCOSE,URINE NEG (NEG); KETONE, URINE NEG (NEG); NITRITE,URINE NEG (NEG); PH, URINE 5.5 (5.0-8.5); URINE COLOR YELLOW (YELLW/STRAW)
[2016-12-06 11:57] LABS: ALT (GPT) 31 U/L (12-78); ANION GAP 12 MEQ/L (5-15); AST (GOT) 43 U/L (15-37); BICARBONATE 24.5 MEQ/L (21.0-32.0); BLOOD UREA NITROGEN 28 MG/DL (7-18); CHLORIDE 102 MEQ/L (98-107); GLOMERULAR FILTRATION RATE 57 ML/MIN (>89); SODIUM (NA) 138 MEQ/L (136-145)
[2016-12-06 11:58] LABS: POTASSIUM 4.7 MEQ/L (3.5-5.1)
[2016-12-06 11:59] LABS: ALKALINE PHOSPHATASE 137 U/L (45-117); TOTAL BILIRUBIN ADULT 1.1 MG/DL (0.2-1.0)
--- NOTE | 2016-12-06 13:56 | HHI.HP ---
[facility] Service Family Medicine Primary Care Physician Gricel Stout MD Admission Diagnosis buttock cellulitis. Draining ulcers. Diagnoses: International Travel<30 Days: No Contact w/Intl Traveler<30days: No Known Affected Area: No History of Present Illness 71-year-old male with history of diabetes presents with buttock cellulitis abscess which started approximately 3-4 days ago. Patient states he went to the [facility] [place] ([facility]); at the [facility], they lanced both [facility]es. [facility], but no one responded because they are on vacation for the weekend. They also put him on Keflex 500 mg twice a day. He's been taking the medication as prescribed. However, approximately 2 days ago he was in 10 out of 10 sharp, nonradiating, pain at the site. He took some of his pain pills and that helped somewhat. He denies fevers or chills. However he has been having the shakes and some sweaty episodes. This morning, he says his pain intensified and that is why he came to the hospital. Currently, he is sitting on a doughnut, and his pain is much relieved. However if he starts to move or put pressure on the site, his pain returns. Review of Systems Constitutional: DENIES: Fever, Chills Eyes: DENIES: Blurred vision, Diplopia Ears, nose, mouth, throat: DENIES: Tinnitus, Hearing loss Respiratory: DENIES: Apneas, Cough Cardiovascular: DENIES: Chest pain, Palpitations Gastrointestinal: DENIES: Abdominal pain, Black stools, Bloody stools, Constipation, Diarrhea, Nausea, Vomiting Neurologic: DENIES: Abnormal gait, Headache Psychiatric: DENIES: Anxiety, Confusion Past Family Social History Past Medical History Systolic congestive heart failure CAD Hypothyroid COPD Diabetes mellitus type 2 hypertension Hyperlipidemia Chronic kidney disease stage III Past Surgical History CABG 2004 Biventricular AICD 2008 Reported Medications Reported Meds & Active Scripts Active Symbicort Inh (Budesonide/Formoterol Fumarate) 160-4.5 Mcg/Act Aero 1 Puff INH Q12HR Metoprolol Tartrate 50 Mg Tab 50 Mg PO DAILY Reported Aspirin 81 Mg Chew 81 Mg CHEW DAILY Ibuprofen 200 Mg Cap 200 Mg PO DAILY PRN Slo-Niacin (Niacin) 500 Mg Tab 500 Mg PO DAILY Cephalexin 500 Mg Cap 500 Mg PO Q12H Lisinopril 10 Mg Tab 10 Mg PO DAILY Tramadol (Tramadol HCl) 50 Mg Tab 50 Mg PO Q8H PRN Furosemide 40 Mg Tab 40 Mg PO DAILY Synthroid (Levothyroxine Sodium) 88 Mcg Tab 88 Mcg PO DAILY Crestor (Rosuvastatin Calcium) 20 Mg Tab 20 Mg PO DAILY Combivent Respimat Inh (Ipratropium-Albuterol Inh) 20-100 Assisted/Act Aero 1 Puff INH QID Allergies: Coded Allergies: MRI PRECAUTION (Verified Adverse Reaction, Severe, CARDIAC PACEMAKER-07/06-GERDA-JA, 12/06/16) Family History Dad: heart disease Mom: DM Social History Tobacco: started 1955; just a couple cigarettes. Then smoked anywhere from 1-5 PPD for roughly 30 years. Patient reports he quit using tobacco in 2012. Alcohol: none now Denies illegal drug use. Lives in a house in [place]. Physical Exam Vital Signs Vital Signs Date Time Temp Pulse Resp B/P Pulse Ox O2 Delivery O2 Flow Rate FiO2 12/06/16 12:28 60 19 117/59 95 Room Air 12/06/16 11:09 93 Room Air 12/06/16 10:25 60 16 12/06/16 10:13 97.4 95 16 118/61 97 Room Air 12/06/16 09:57 97.7 84 18 101/62 96 Physical Exam GENERAL: This is a well-nourished, well-developed patient, in no apparent distress. SKIN: Right and left buttock midline are 2 draining wounds approximately 1 cm x 1 cm with surrounding induration and erythema consistent with cellulitis and previous abscess drainage. HEAD: Atraumatic. Normocephalic. No temporal or scalp tenderness. EYES: Pupils equal round and reactive. Extraocular motions intact. No scleral icterus. No injection or drainage. ENT: Nose without bleeding, purulent drainage or septal hematoma. Throat without erythema, tonsillar hypertrophy or exudate. Uvula midline. Airway patent. NECK: Trachea midline. No JVD or lymphadenopathy. Supple, nontender, no meningeal signs. CARDIOVASCULAR: Regular rate and rhythm without murmurs, gallops, or rubs. RESPIRATORY: Clear to auscultation. Breath sounds equal bilaterally. No wheezes , rales, or rhonchi. GASTROINTESTINAL: Abdomen soft, non-tender, nondistended. No hepato-splenomegaly , or palpable masses. No guarding. MUSCULOSKELETAL: Extremities without clubbing, cyanosis, or edema. No joint tenderness, effusion, or edema noted. No calf tenderness. Negative Homans sign bilaterally. NEUROLOGICAL: Awake and alert. Cranial nerves II through XII intact. Motor and sensory grossly within normal limits. Five out of 5 muscle strength in all muscle groups. Normal speech. Laboratory Laboratory Tests Test 12/06/16 12/06/16 10:45 11:30 White Blood Count 12.7 Red Blood Count 5.64 Hemoglobin 15.0 Hematocrit 46.7 Mean Corpuscular Volume 82.9 Mean Corpuscular Hemoglobin 26.6 Mean Corpuscular Hemoglobin 32.1 Concent Red Cell Distribution Width 17.3 Platelet Count 177 Mean Platelet Volume 8.6 Neutrophils (%) (Auto) 84.5 Lymphocytes (%) (Auto) 5.2 Monocytes (%) (Auto) 6.9 Eosinophils (%) (Auto) 2.8 Basophils (%) (Auto) 0.6 Neutrophils # (Auto) 10.8 Lymphocytes # (Auto) 0.7 Monocytes # (Auto) 0.9 Eosinophils # (Auto) 0.4 Basophils # (Auto) 0.1 CBC Comment DIFF FINAL Differential Comment Prothrombin Time 11.7 Prothromb Time International 1.1 Ratio Activated Partial 30.8 Thromboplast Time Sodium Level 138 Potassium Level 4.7 Chloride Level 102 Carbon Dioxide Level 24.5 Anion Gap 12 Blood Urea Nitrogen 28 Creatinine 1.25 Estimat Glomerular Filtration 57 Rate Random Glucose 125 Calcium Level 9.1 Total Bilirubin 1.1 Aspartate Amino Transf 43 (AST/SGOT) Alanine Aminotransferase 31 (ALT/SGPT) Alkaline Phosphatase 137 Total Protein 7.1 Albumin 2.6 Urine Color YELLOW Urine Turbidity CLEAR Urine pH 5.5 Urine Specific [place] 1.018 Urine Protein 30 Urine Glucose (UA) NEG Urine Ketones NEG Urine Occult Blood NEG Urine Nitrite NEG Urine Bilirubin NEG Urine Urobilinogen LESS THAN 2.0 Urine Leukocyte Esterase NEG Urine RBC LESS THAN 1 Urine WBC 1 Microscopic Urinalysis Comment CULT NOT INDICATED Date/Time Procedure Status Source Growth 12/06/16 10:55 Aerobic Blood Culture Received Blood Peripheral Pending 12/06/16 10:55 Anaerobic Blood Culture Received Blood Peripheral Pending 12/06/16 10:35 Gram Stain Received Wound Buttock Pending 12/06/16 10:35 Wound Culture Received Wound Buttock Pending Result Diagram: 12/06/16 1045 12/06/16 1045 Imaging Last Impressions Chest X-Ray 12/06/16 1047 Signed Impressions: Service Date/Time: Tuesday, December 06, 2016 10:52 - CONCLUSION: No definite acute finding is identified. The mild interstitial changes described previously have improved or resolved. Ramiro Mcdaniels MD Assessment and Plan Assessment and Plan 71-year-old male diabetic with a 3 to four-day history of cellulitis/abscess which failed outpatient treatment. He will be admitted for IV antibiotics. Code Status Full Problem List: (1) Cellulitis of buttock, left Status: Acute Plan: Given patient is diabetic, will cover polymicrobial bacteria An attempt was made to call the [facility] in [facility] for microbiology data following [place] of an abscess 3-4 days ago. Nursing order placed to obtain this information as soon as possible. Vancomycin 1500 mg IV every 12 hours (Vancomycin pharmacy consult); patient has a history of chronic kidney disease. However creatinine normal at this time. Zosyn 3.375 mg IV every 6 hours Pain control: norco 5 pain 1-5, norco 7.5 pain 6-10 (careful with NSAID in patient with hx of CKD) Wound culture from the ED pending Blood culture pending Wound care nursing consult (2) Cellulitis of buttock, right Status: Acute Plan: see cellulitis above (3) CKD (chronic kidney disease), stage III Status: Chronic Plan: Continue to closely monitor as the patient is on vancomycin. (4) chronic medical problems Status: Acute Plan: Systolic congestive heart failure-continue Lasix 40 mg by mouth daily, lisinopril CAD- continue aspirin COPD-continue home Symbicort, Combivent Hypothyroid-continue home Synthroid Diabetes mellitus type 2 Hyperlipidemia-continue home Crestor (5) FEN Status: Acute Plan: Fluids: None at this time. Electrolytes: Monitor and replace as needed Nutrition: Diabetic diet Prophylaxis: Heparin, SCDs Physician Certification 2 Midnight Certification Type: Admission for Inpatient Services Order for Inpatient Services The services are ordered in accordance with Medicare regulations or non- Medicare payer requirements, as applicable. In the case of services not specified as inpatient-only, they are appropriately provided as inpatient services in accordance with the 2-midnight benchmark. Estimated LOS (days): 2 days is the estimated time the patient will need to remain in the hospital, assuming treatment plan goals are met and no additional complications. Post-Hospital Plan: Home Hernandez Metzger MD R2 December 06, 2016 13:56
[2016-12-06] MEDS ORDERED: NALOXONE HCL 0.4 MG/ML AMP IV PRN (14:15)
[2016-12-06] MEDS ORDERED: ONDANSETRON HCL 4 MG/2 ML VIAL IVP PRN (14:15)
[2016-12-06] MEDS ORDERED: BISACODYL 10 MG SUPP RECTAL PRN (14:15)
[2016-12-06] MEDS ORDERED: MAGNESIUM HYDROXIDE SUSP 30 ML CUP PO PRN (14:15)
[2016-12-06] MEDS ORDERED: SODIUM CHLORIDE 0.9% FLUSH 10 ML FLUSH IV FLUSH PRN (14:15)
[2016-12-06] MEDS ORDERED: LACTULOSE SYRUP 20 GM/30 ML CUP PO PRN (14:15)
[2016-12-06] MEDS ORDERED: SENNOSIDES 8.6 MG TAB PO PRN (14:15)
[2016-12-06] MEDS ORDERED: ACETAMINOPHEN/HYDROcodone 325 MG/5 MG TAB PO PRN (14:45)
[2016-12-06] MEDS ORDERED: KETOROLAC TROMETHAMINE 30 MG/ML (IVP) VIAL IVP PRN (14:45)
[2016-12-06] MEDS ORDERED: VANCOMYCIN INJ 1,500 MG in SODIUM CHLORID 0.9% 500 ML INJ 500 ML IV SCH (14:45)
[2016-12-06] MEDS ORDERED: Vancomycin Consult Pharmacy 1 EA OTHER SCH (14:45)
[2016-12-06] MEDS: HEPARIN SODIUM - SQ 10,000 UNITS/ML VIAL SQ SCH (14:57)
[2016-12-06] MEDS: PIPERACIL-TAZO 3.375 GM PREMIX 50 ML IV SCH ×2 (14:57→21:32)
--- NOTE | 2016-12-06 14:57 | EKG ---
Date Performed: 12/06/2016 Time Performed: 11:16:04 PTAGE: 71 years EKG: ELECTRONIC ATRIAL PACEMAKER ELECTRONIC VENTRICULAR PACEMAKER ABNORMAL RHYTHM ECG NO SIGNIFI CANT CHANGE FROM PRIOR ELECTROCARDIOGRAM. PREVIOUS TRACING : 11/14/2016 23.26 DOCTOR: El Ziegler Interpretating Date/Time 12/06/2016 14:55:16
[2016-12-06] MEDS: VANCOMYCIN INJ 1,250 MG in SODIUM CHLOR 0.9% 250 ML INJ 250 ML IV SCH (17:50)
[2016-12-06] MEDS ORDERED: COMBIVENT RESPIMAT INH SCH (18:00)
[2016-12-06] MEDS: DOCUSATE SODIUM 50 MG/SENNA 8.6 MG TAB PO SCH (21:00)
[2016-12-06] MEDS: SODIUM CHLORIDE 0.9% FLUSH 10 ML FLUSH IV FLUSH SCH (21:00)
[2016-12-06] MEDS: BUDESONIDE-FORMOTEROL 160/4.5 MCG INHALER INH SCH (21:00)
[2016-12-07] VITALS: BP 114/62; PULSE 63; RESP 16; TEMP 97.7; O2SAT 96
[2016-12-07] MEDS: PIPERACIL-TAZO 3.375 GM PREMIX 50 ML IV SCH ×2 (04:33→07:59)
[2016-12-07] MEDS: LEVOTHYROXINE SODIUM 88 MCG TAB PO SCH (04:33)
[2016-12-07] MEDS: HEPARIN SODIUM - SQ 10,000 UNITS/ML VIAL SQ SCH ×2 (04:34→13:33)
[2016-12-07] MEDS: ACETAMINOPHEN/HYDROcodone 325 MG/7.5 MG TAB PO PRN ×3 (05:01→21:07)
[2016-12-07 06:55] LABS: AUTOMATED NEUTROPHIL # 6.8 TH/MM3 (1.8-7.7); BASOPHIL % 0.4 % (0.0-2.0); EOSINOPHIL # 0.3 TH/MM3 (0-0.4); EOSINOPHIL % 3.4 % (0.0-4.0); HEMATOCRIT 41.1 % (39.0-51.0); HEMO FLAGS DIFF FINAL; LYMPH % 10.3 % (9.0-44.0); LYMPHOCYTE # 0.9 TH/MM3 (1.0-4.8); MEAN CELL VOLUME 82.3 FL (80.0-100.0); MEAN CORPUSCULAR HEMOGLOBIN 27.3 PG (27.0-34.0); MEAN CORPUSCULAR HGB CONC 33.2 % (32.0-36.0); MONO % 7.4 % (0.0-8.0); NEUT % 78.5 % (16.0-70.0); PLATELET COUNT 146 TH/MM3 (150-450); RED BLOOD COUNT 4.99 MIL/MM3 (4.50-5.90); WHITE BLOOD COUNT 8.6 TH/MM3 (4.0-11.0)
[2016-12-07 07:15] LABS: ALT (GPT) 24 U/L (12-78); ANION GAP 9 MEQ/L (5-15); AST (GOT) 24 U/L (15-37); BICARBONATE 25.7 MEQ/L (21.0-32.0); BLOOD UREA NITROGEN 27 MG/DL (7-18); CHLORIDE 104 MEQ/L (98-107); GLOMERULAR FILTRATION RATE 65 ML/MIN (>89); POTASSIUM 4.3 MEQ/L (3.5-5.1); SODIUM (NA) 139 MEQ/L (136-145)
[2016-12-07 07:17] LABS: ALKALINE PHOSPHATASE 112 U/L (45-117); TOTAL BILIRUBIN ADULT 0.7 MG/DL (0.2-1.0)
--- NOTE | 2016-12-07 07:18 | HHI.FPPN ---
Subjective Remarks Naresh Vidal is a 71yo gentleman with h/o DM II presented for buttock abscesses x 4 days. He apparently was seen at [facility], where he had I&D and was started on Keflex. He had increasing pain in his buttocks which prompted him to seek medical attention. At the time of admission/presentation, wound culture results are unavailable due to the holiday weekend. For further details, please see resident H&P. This morning, he feels his buttock pain is under control. He reports some drainage from the abscess sites. No fevers. ROS: No fevers. + buttock pain (controlled). No chest pain, no SOB. All other systems reviewed are negative. PMH/PSxH/SocHx/FamHx: Per resident H&P. Significant for: CHF, CAD, hypothyroidism, COPD, DM II, HTN, hyperlipidemia, CKD stage 3. CABG 2004, AICD 2008. Father with heart disease, mother with DM II. 150 pack year tobacco history, but quit 2012. No current alcohol use. No recreational drug use. Lives in a home locally. TdaP > 10 years. Objective Vitals Vital Signs Date Time Temp Pulse Resp B/P Pulse Ox O2 Delivery O2 Flow Rate FiO2 12/07/16 00:00 97.7 63 16 114/62 96 12/06/16 20:00 98.8 59 18 124/60 94 12/06/16 16:00 95.7 60 17 126/65 94 12/06/16 14:58 60 19 125/65 95 Room Air 12/06/16 12:28 60 19 117/59 95 Room Air 12/06/16 11:09 93 Room Air 12/06/16 10:25 60 16 12/06/16 10:13 97.4 95 16 118/61 97 Room Air 12/06/16 09:57 97.7 84 18 101/62 96 I/O 12/06/16 12/06/16 12/06/16 12/07/16 12/07/16 12/07/16 07:00 15:00 23:00 07:00 15:00 23:00 Intake Total 640 ml 360 ml Output Total 40 ml 350 ml Balance 600 ml 10 ml Intake Oral 640 ml 360 ml Output Urine Total 40 ml 350 ml # Voids 2 # Bowel Movements 1 0 Result Diagram: 12/07/16 0600 12/07/16 0600 Objective Remarks GENERAL: in NAD, no resp distress, nontoxic. HEENT: NCAT, EOMI, no scleral icterus, no conjunctival injection. MMM. NECK: Supple, no meningeal signs. CV: RRR, S1 S2. No murmurs CHEST/PULM: CTAB, no crackles, no wheezes ABD/GI: +BS, soft, nontender, nondistended EXT: 2+ DP pulses. No calf tenderness. No edema. NEURO: Awake, alert. Normal muscle tone. Grossly nonfocal. SKIN: No rashes, no jaundice. PSYCH: Mood and affect are appropriate. : within the gluteal cleft, there are 2 distinct areas of abscess and cellulitis, one on left glut and one on R glut. R glut abscess with 2cm x 2 cm area of erythema and induration, with central area open from recent I&D, tender to touch. This does not cross midline. Left glut abscess measures 1cm x 1.5 cm of erythema and induration, with central area open from recent I&D, tender to touch. This does not cross midline. There is bloody purulent drainage noted on Mepilex dressing. which was replaced. SKIN: Right and left buttock midline are 2 draining wounds approximately 1 cm x 1 cm with surrounding induration and erythema consistent with cellulitis and previous abscess drainage. A/P Assessment and Plan 71-year-old male diabetic with a 3 to four-day history of cellulitis/abscess which failed outpatient treatment. He will be admitted for IV antibiotics. Attending Attestation Patient seen, examined, and discussed with resident team. The patient has been seen and examined. The chart and all resident notes have been reviewed. I agree that inpatient care is appropriate and that a two midnight stay is expected for the reasons documented in the resident history and physical. I have discussed this with the resident and certify the resident s order for inpatient admission. Problem List: (1) Cellulitis of buttock, left Status: Acute Plan: Vancomycin 1500 mg IV every 12 hours (Vancomycin pharmacy consult); patient has a history of chronic kidney disease. However creatinine normal at this time. 12/06/16 --> Zosyn 3.375 mg IV every 6 hours 12/06/16 --> Pain control: norco 5 pain 1-5, norco 7.5 pain 6-10 (careful with NSAID in patient with hx of CKD) W[facility] Attempts have been made to obtain these results. Will try again. Wound culture 12/06/16 pending (although treated with Keflex prior to obtaining culture) Blood culture pending Wound care nursing consult TdaP. (2) Cellulitis of buttock, right Status: Acute Plan: see cellulitis above. (3) CKD (chronic kidney disease), stage III Status: Chronic Plan: Continue to closely monitor as the patient is on vancomycin. Monitor Is/Os. Renally dose medications if indicated. (4) Thrombocytopenia Status: Chronic Plan: No obvious active bleeding. mild. (5) Congestive heart failure (CHF) Status: Chronic Plan: Not in exacerbation. continue Lasix 40 mg by mouth daily, lisinopril (6) Carotid artery disease Status: Chronic Plan: Asymptomatic. Continue home medications. (7) Hypertension Status: Chronic Plan: Under good control. Continue home medications and monitor blood pressure with routine vitals. (8) Hyperlipidemia Status: Chronic Plan: Continue statin (9) Diabetes mellitus, type 2 Status: Chronic Plan: diet control. Monitor glucose. (10) Hypothyroidism Status: Chronic Plan: Continue home synthroid. (11) COPD (chronic obstructive pulmonary disease) Status: Chronic Plan: Continue home breathing treatments. Maintaining sats on room air. Lungs clear to auscultation. Problem Qualifiers (1) Hypertension: Qualified Code: I10 - Essential hypertension (2) COPD (chronic obstructive pulmonary disease): Qualified Code: J41.0 - Simple chronic bronchitis Hanh Lee MD December 07, 2016 07:18
[2016-12-07] MEDS: ASPIRIN 81 MG CHEW TAB CHEW SCH (07:59)
[2016-12-07 08:00] VITALS: BP 131/68; PULSE 60; RESP 18; TEMP 95.3; O2SAT 93
[2016-12-07] MEDS: METOPROLOL TARTRATE 50 MG TAB PO SCH (08:00)
[2016-12-07] MEDS: FUROSEMIDE 40 MG TAB PO SCH (08:00)
[2016-12-07] MEDS: SODIUM CHLORIDE 0.9% FLUSH 10 ML FLUSH IV FLUSH SCH ×2 (08:00→21:08)
[2016-12-07] MEDS: LISINOPRIL 10 MG TAB PO SCH (08:00)
[2016-12-07] MEDS: ATORVASTATIN 40 MG TAB PO SCH (08:00)
[2016-12-07] MEDS: DOCUSATE SODIUM 50 MG/SENNA 8.6 MG TAB PO SCH ×2 (08:01→21:00)
[2016-12-07] MEDS: methylPREDNISolone 4 MG TAB PO SCH (08:58)
[2016-12-07] MEDS: BUDESONIDE-FORMOTEROL 160/4.5 MCG INHALER INH SCH ×2 (08:58→21:07)
[2016-12-07] MEDS ORDERED: DIPHTH/TETANUS/ACEL PERTUSSIS (BOOSTER) 0.5 ML VIAL/PFS IM ONE (09:00)
[2016-12-07] MEDS: VANCOMYCIN INJ 1,250 MG in SODIUM CHLOR 0.9% 250 ML INJ 250 ML IV SCH (11:06)
[2016-12-07 12:00] VITALS: BP 97/55; PULSE 60; RESP 18; TEMP 95.5; O2SAT 94
[2016-12-07 16:00] VITALS: BP 105/58; PULSE 61; RESP 18; TEMP 95.7; O2SAT 94
[2016-12-07 20:00] VITALS: BP 104/55; PULSE 67; RESP 20; TEMP 97.8; O2SAT 94
[2016-12-08] VITALS: BP 100/62; PULSE 70; RESP 20; TEMP 98.6; O2SAT 96
[2016-12-08] MEDS: VANCOMYCIN INJ 1,250 MG in SODIUM CHLOR 0.9% 250 ML INJ 250 ML IV SCH (03:36)
[2016-12-08] MEDS: HEPARIN SODIUM - SQ 10,000 UNITS/ML VIAL SQ SCH ×2 (03:36→12:55)
[2016-12-08] MEDS: LEVOTHYROXINE SODIUM 88 MCG TAB PO SCH (04:53)
[2016-12-08 05:44] LABS: AUTOMATED NEUTROPHIL # 6.1 TH/MM3 (1.8-7.7); BASOPHIL % 0.6 % (0.0-2.0); EOSINOPHIL # 0.3 TH/MM3 (0-0.4); HEMATOCRIT 42.2 % (39.0-51.0); HEMO FLAGS DIFF FINAL; LYMPH % 15.7 % (9.0-44.0); LYMPHOCYTE # 1.3 TH/MM3 (1.0-4.8); MEAN CELL VOLUME 82.3 FL (80.0-100.0); MEAN CORPUSCULAR HEMOGLOBIN 27.1 PG (27.0-34.0); MEAN CORPUSCULAR HGB CONC 32.9 % (32.0-36.0); MONO % 8.3 % (0.0-8.0); NEUT % 71.4 % (16.0-70.0); PLATELET COUNT 169 TH/MM3 (150-450); RED BLOOD COUNT 5.13 MIL/MM3 (4.50-5.90); RED CELL DISTRIBUTION WIDTH 16.6 % (11.6-17.2); WHITE BLOOD COUNT 8.5 TH/MM3 (4.0-11.0)
[2016-12-08 05:50] LABS: BICARBONATE 23.3 MEQ/L (21.0-32.0); POTASSIUM 4.8 MEQ/L (3.5-5.1)
[2016-12-08 08:00] VITALS: BP 128/76; PULSE 61; RESP 19; TEMP 97.8; O2SAT 96
[2016-12-08] MEDS: methylPREDNISolone 4 MG TAB PO SCH (08:27)
[2016-12-08] MEDS: LISINOPRIL 10 MG TAB PO SCH (08:27)
[2016-12-08] MEDS: FUROSEMIDE 40 MG TAB PO SCH (08:27)
[2016-12-08] MEDS: METOPROLOL TARTRATE 50 MG TAB PO SCH (08:27)
[2016-12-08] MEDS: ATORVASTATIN 40 MG TAB PO SCH (08:28)
[2016-12-08] MEDS: ASPIRIN 81 MG CHEW TAB CHEW SCH (08:28)
[2016-12-08] MEDS: SODIUM CHLORIDE 0.9% FLUSH 10 ML FLUSH IV FLUSH SCH ×2 (08:28→20:34)
[2016-12-08] MEDS: BUDESONIDE-FORMOTEROL 160/4.5 MCG INHALER INH SCH ×2 (08:28→20:35)
[2016-12-08] MEDS: DOCUSATE SODIUM 50 MG/SENNA 8.6 MG TAB PO SCH ×2 (08:34→20:34)
--- NOTE | 2016-12-08 08:39 | HHI.FPPN ---
Subjective Remarks Patient is doing "fine" this morning. Continues to complain of pain at the wound site. Improved from prior to admission. Denies fever or chills. Denies nausea, vomiting, chest pain. (Hernandez Metzger MD R2) Objective Vitals Vital Signs Date Time Temp Pulse Resp B/P Pulse Ox O2 Delivery O2 Flow Rate FiO2 12/08/16 08:00 97.8 61 19 128/76 96 12/08/16 00:00 98.6 70 20 100/62 96 12/07/16 22:07 18 12/07/16 20:00 97.8 67 20 104/55 94 12/07/16 16:00 95.7 61 18 105/58 94 12/07/16 12:00 95.5 60 18 97/55 94 I/O 12/07/16 12/07/16 12/07/16 12/08/16 12/08/16 12/08/16 07:00 15:00 23:00 07:00 15:00 23:00 Intake Total 360 ml 1321 ml 590 ml 120 ml Output Total 350 ml 575 ml 600 ml Balance 10 ml 746 ml -10 ml 120 ml Intake Oral 360 ml 960 ml 240 ml 120 ml IV Total 361 ml 350 ml Output Urine Total 350 ml 575 ml 600 ml # Bowel Movements 0 2 0 (Hernandez Metzger MD R2) Result Diagram: 12/08/1644612/08/16446 Objective Remarks GENERAL: in NAD, no resp distress, nontoxic. HEENT: NCAT, EOMI, no scleral icterus, no conjunctival injection. MMM. NECK: Supple, no meningeal signs. CV: RRR, S1 S2. No murmurs CHEST/PULM: CTAB, no crackles, no wheezes ABD/GI: +BS, soft, nontender, nondistended EXT: 2+ DP pulses. No calf tenderness. No edema. NEURO: Awake, alert. Normal muscle tone. Grossly nonfocal. SKIN: No rashes, no jaundice. PSYCH: Mood and affect are appropriate. : within the gluteal cleft, there are 2 distinct areas of abscess and cellulitis, one on left glut and one on R glut. R glut abscess with 2cm x 2 cm area of erythema and induration, with central area open from recent I&D, tender to touch. This does not cross midline. Left glut abscess measures 1cm x 1.5 cm of erythema and induration, with central area open from recent I&D, tender to touch. This does not cross midline. (Hernandez Metzger MD R2) A/P Assessment and Plan 71-year-old male diabetic with a 3 to four-day history of cellulitis/abscess which failed outpatient treatment. He will be admitted for IV antibiotics. Discharge Planning Pending improvement of abscess/cellulitis (Hernandez Metzger MD R2) Attending Attestation Patient seen and examined, discussed with resident team. I agree with assessment and management as documented and discussed with me. Patient reports pain is the same. Per nursing and patient, there has been increased drainage with increased use of warm compresses. Discussed with patient results of ultrasound, which demonstrated complex abscesses. General surgery to be consulted for evaluation for I&D. He complains of SOB this morning, also with a midsternal chest pain. CXR and BNP have been ordered. Will also evaluate for ACS with serial troponins and enzymes. Chest pain: CHF vs COPD vs ACS vs other. CXR ordered. BNP increased. Provide IV lasix x 1. Monitor with serial troponins/enzymes. (Hanh Lee MD) Problem List: (1) Cellulitis of buttock, left Status: Acute Plan: Vancomycin 1500 mg IV every 12 hours (Vancomycin pharmacy consult); patient has a history of chronic kidney disease. However creatinine normal at this time. 12/06/16 --> Pain control: norco 5 pain 1-5, norco 7.5 pain 6-10 (careful with NSAID in patient with hx of CKD) Ultrasound ordered to assess for drainable fluid pocket/abscess No wound culture obtained from I&D at [facility] prior to admission Wound culture 12/06/16: MRSA (although treated with Keflex prior to obtaining culture) Susceptibilities pending Blood culture: No growth to date Wound care nursing consult Antibiotic history: Zosyn 3.375 mg IV every 6 hours (12/06/16 --> 12/07) TdaP administered (2) Cellulitis of buttock, right Status: Acute Plan: see cellulitis above. (3) CKD (chronic kidney disease), stage III Status: Chronic Plan: Continue to closely monitor as the patient is on vancomycin. Monitor Is/Os. Renally dose medications if indicated. Avoid nephrotoxic agents (4) Thrombocytopenia Status: Chronic Plan: Stable No obvious active bleeding. mild. (5) Congestive heart failure (CHF) Status: Chronic Plan: Not in exacerbation. continue Lasix 40 mg by mouth daily, lisinopril (6) Carotid artery disease Status: Chronic Plan: Asymptomatic. Continue home medications. (7) Hypertension Status: Chronic Plan: Under good control. Continue home medications and monitor blood pressure with routine vitals. (8) Hyperlipidemia Status: Chronic Plan: Continue statin (9) Diabetes mellitus, type 2 Status: Chronic Plan: diet control. Monitor glucose. (10) Hypothyroidism Status: Chronic Plan: Continue home synthroid. (11) COPD (chronic obstructive pulmonary disease) Status: Chronic Plan: Continue home breathing treatments. Maintaining sats on room air. Lungs clear to auscultation. (Hernandez Metzger MD R2) Problem Qualifiers (1) Hypertension: Qualified Code: I10 - Essential hypertension (2) COPD (chronic obstructive pulmonary disease): Qualified Code: J41.0 - Simple chronic bronchitis Hernandez Metzger MD R2 December 08, 2016 08:39 Hanh Lee MD December 08, 2016 12:28
--- NOTE | 2016-12-08 10:21 | RADRPT ---
EXAM DATE/TIME: 12/08/2016 08:53 [facility] COMPARISON: No previous studies available for comparison. INDICATIONS : Left and right buttock abscess vs cellulitis. MEDICAL HISTORY : Chronic obstructive pulmonary disease. Myocardial infarction. Hypercholesterolemia. Hypothyroidism. C HF. CAD. Hypertension. DVT. Dyspnea. GERD. Kidney stones. Arthritis. Diabetes. Liver disease. PTSD. M RSA. SURGICAL HISTORY : Tonsillectomy. Pacemaker. Cardiac catheteization. Hernia repair. ENCOUNTER: Initial ACUITY: 1 day PAIN SCORE: 5/10 LOCATION: Buttock. AREA EVALUATED: Right and left buttock. COMPLETE APPROPRIATE ITEMS PRE PROCEDURE: ID x 2: Complete NameDate of BirthPatient Name Band Education: Nurse/Technologist explained procedu re to patient/family. Patient/family demonstrates understanding of procedure. FINDINGS: MASSES: None. FLUID COLLECTIONS: Complex, elongated, 11.6 x 1.5 x 0.47 cm fluid collection in the right buttocks. A smaller, 1.1 x 1.1 x 0.64 cm complex collection is seen in the left buttocks. OTHER: Negative. CONCLUSION: 1. Complex fluid collections in the subcutaneous tissues of the buttocks bilaterally. 2. The right-sided collection is elongated with a more linear configuration. The left-sided collectio n is somewhat rounded. Ashu Mueller MD on December 08, 2016 at 10:16 Board Certified Radiologist. This report was verified electronically.
--- NOTE | 2016-12-08 10:41 | RADRPT ---
EXAM DATE/TIME: 12/08/2016 10:10 [facility] COMPARISON: CHEST SINGLE AP, December 06, 2016, 10:52. INDICATIONS : Shortness of breath; dyspnea. MEDICAL HISTORY : Chronic obstructive pulmonary disease. Congestive heart failure. Hypercholesterolemia. Myocardial inf arction. CAD. SURGICAL HISTORY : CABG. Pacemaker. Cardiac cath. Hernia repair ENCOUNTER: Subsequent ACUITY: 1 day PAIN SCORE: 0/10 LOCATION: Bilateral chest FINDINGS: Stable dual-lead AICD device in place. Median sternotomy wires and changes of prior cardiac surgery. Cardiac silhouette is enlarged. There is mild increased elevation of the left hemidiaphragm in compar roseline to prior exam. Continued increase interstitial prominence unchanged when differences in techniqu e. Remainder of the exam is unchanged. CONCLUSION: 1. Increased elevation of the left hemidiaphragm may be positional although a subpulmonic loculated e ffusion may have a similar appearance. 2. otherwise, no significant interval change. Shlomo Marrero MD on December 08, 2016 at 10:36 Board Certified Radiologist. This report was verified electronically.
[2016-12-08] MEDS ORDERED: PHARMACY ORDERED LAB ONE (10:45)
[2016-12-08 12:00] VITALS: BP 124/68; PULSE 60; RESP 20; TEMP 97.9; O2SAT 96
[2016-12-08] MEDS ORDERED: FUROSEMIDE 20 MG/2 ML VIAL IV PUSH ONE (12:30)
--- NOTE | 2016-12-08 15:52 | PD.CONS ---
HPI Service General surgery Consult Requested By Dr. Metzger Reason for Consult Buttock abscess Primary Care Physician Gricel Stout MD History of Present Illness 71-year-old male history of bilateral buttock abscesses status post incision and drainage. He was placed on Keflex as an outpatient. He's had persistent pain and swelling and presented to the hospital two days ago. Extensive PMH including CHF with EF 15-20%. U/s was performed showing bilateral buttock abscesses, larger on right. Review of Systems Constitutional: DENIES: Fever, Chills Eyes: DENIES: Eye inflammation, Eye pain Respiratory: COMPLAINS OF: Wheezing Cardiovascular: COMPLAINS OF: Chest pain, DENIES: Palpitations Gastrointestinal: DENIES: Abdominal pain, Nausea Musculoskeletal: DENIES: Stiffness, Joint Swelling Integumentary: DENIES: Pruritus, Rash Neurologic: DENIES: Paresthesias, Seizures Past Family Social History Past Medical History Systolic congestive heart failure CAD Hypothyroid COPD Diabetes mellitus type 2 HTN Hyperlipidemia Chronic kidney disease stage III Past Surgical History CABG Reported Medications Reported Meds & Active Scripts Active Symbicort Inh (Budesonide/Formoterol Fumarate) 160-4.5 Mcg/Act Aero 1 Puff INH Q12HR Metoprolol Tartrate 50 Mg Tab 50 Mg PO DAILY Reported Aspirin 81 Mg Chew 81 Mg CHEW DAILY Methylprednisolone 8 Mg Tab 4 Mg PO DAILY Ibuprofen 200 Mg Cap 200 Mg PO DAILY PRN Slo-Niacin (Niacin) 500 Mg Tab 500 Mg PO DAILY Lisinopril 10 Mg Tab 10 Mg PO DAILY Tramadol (Tramadol HCl) 50 Mg Tab 50 Mg PO Q8H PRN Furosemide 40 Mg Tab 40 Mg PO DAILY Synthroid (Levothyroxine Sodium) 88 Mcg Tab 88 Mcg PO DAILY Crestor (Rosuvastatin Calcium) 20 Mg Tab 20 Mg PO DAILY Combivent Respimat Inh (Ipratropium-Albuterol Inh) 20-100 [facility]/Act Aero 1 Puff INH QID Allergies: Coded Allergies: MRI PRECAUTION (Verified Adverse Reaction, Severe, CARDIAC PACEMAKER-07/06-CARLEE, 12/06/16) *MDRO Multi-Drug Resistant Organism (Verified Adverse Reaction, Unknown, MRSA, 12/08/16) MRSA (buttock) - 12/06/16 Active Ordered Medications Current Medications Medications (Trade) Dose Ordered Sig/Lloyd Route Start Time Stop Time Status Last Admin (NS Flush) 2 ml UNSCH PRN IV FLUSH 12/06/16 14:15 12/06/16 17:50 (NS Flush) 2 ml BID IV FLUSH 12/06/16 21:00 12/08/16 08:28 (Zofran Inj) 4 mg Q6H PRN IVP 12/06/16 14:15 (Heparin Inj) 5,000 units Q12H SQ 12/06/16 15:00 12/08/16 12:55 (Narcan Inj) 0.4 mg UNSCH PRN IV 12/06/16 14:15 (Lesley-Colace) 1 tab BID PO 12/06/16 21:00 (Milk Of Magnesia Liq) 30 ml Q12H PRN PO 12/06/16 14:15 (Senokot) 17.2 mg Q12H PRN PO 12/06/16 14:15 (Dulcolax Supp) 10 mg DAILY PRN RECTAL 12/06/16 14:15 (Lactulose Liq) 30 ml DAILY PRN PO 12/06/16 14:15 ([place] 5-325 Mg) 1 tab Q4H PRN PO 12/06/16 14:45 12/06/16 16:08 ([place] 7.5-325 Mg) 1 tab Q4H PRN PO 12/06/16 14:45 12/07/16 21:07 (Aspirin Chew) 81 mg DAILY CHEW 12/07/16 09:00 12/08/16 08:28 (Symbicort 160-4.5 Inh) 1 puff Q12HR INH 12/06/16 21:00 12/08/16 08:28 (Lasix) 40 mg DAILY PO 12/07/16 09:00 12/08/16 08:27 (Synthroid) 88 mcg DAILY@06 PO 12/07/16 06:00 12/08/16 04:53 (Prinivil) 10 mg DAILY PO 12/07/16 09:00 12/08/16 08:27 (Medrol) 4 mg DAILY PO 12/07/16 09:00 12/08/16 08:27 (Lopressor) 50 mg DAILY PO 12/07/16 09:00 12/08/16 08:27 Patient Own Medication PT OWN MED: COMBIV... QID INH 12/06/16 18:00 Hold Atorvastatin Calcium 40 mg 40 mg DAILY PO 12/07/16 09:00 12/08/16 08:28 (Cleocin Inj/NS Inj) 104 ml @ 208 mls/hr Q8H IV 12/08/16 21:00 Family History Noncontributory Social History No current ETOH, tobacco, or drug use Physical Exam Vital Signs Vital Signs Date Time Temp Pulse Resp B/P Pulse Ox O2 Delivery O2 Flow Rate FiO2 12/08/16 12:00 97.9 60 20 124/68 96 12/08/16 08:00 97.8 61 19 128/76 96 12/08/16 00:00 98.6 70 20 100/62 96 12/07/16 22:07 18 12/07/16 20:00 97.8 67 20 104/55 94 12/07/16 16:00 95.7 61 18 105/58 94 Physical Exam GENERAL: Awake and alert. No acute distress. Cooperative. HEAD: Normocephalic. Atraumatic. CHEST: Nonlabored breathing CARDIOVASCULAR: Regular rate and rhythm EXTREMITIES: No cyanosis or edema. SKIN: Left posterior buttock about 6 cm from the anus to pinpoint hole with minimal surrounding induration, no erythema. Right posterior buttock with much larger area of induration and multiple small gallstones in various stages of healing. No erythema. No pus draining. Laboratory Laboratory Tests Test 12/08/16 12/08/16 04:47 13:48 White Blood Count 8.5 Red Blood Count 5.13 Hemoglobin 13.9 Hematocrit 42.2 Mean Corpuscular Volume 82.3 Mean Corpuscular Hemoglobin 27.1 Mean Corpuscular Hemoglobin 32.9 Concent Red Cell Distribution Width 16.6 Platelet Count 169 Mean Platelet Volume 8.1 Neutrophils (%) (Auto) 71.4 Lymphocytes (%) (Auto) 15.7 Monocytes (%) (Auto) 8.3 Eosinophils (%) (Auto) 4.0 Basophils (%) (Auto) 0.6 Neutrophils # (Auto) 6.1 Lymphocytes # (Auto) 1.3 Monocytes # (Auto) 0.7 Eosinophils # (Auto) 0.3 Basophils # (Auto) 0.0 CBC Comment DIFF FINAL Differential Comment Sodium Level 139 Potassium Level 4.8 Chloride Level 107 Carbon Dioxide Level 23.3 Anion Gap 9 Blood Urea Nitrogen 30 Creatinine 1.42 Estimat Glomerular Filtration 49 Rate Random Glucose 117 Calcium Level 8.7 B-Type Natriuretic Peptide 993 Troponin I 0.05 Date/Time Procedure Status Source Growth 12/06/16 10:55 Aerobic Blood Culture - Preliminary Resulted Blood Peripheral NO GROWTH IN 2 DAYS 12/06/16 10:55 Anaerobic Blood Culture - Preliminary Resulted Blood Peripheral NO GROWTH IN 2 DAYS 12/06/16 10:35 Gram Stain - Final Complete Wound Buttock 12/06/16 10:35 Wound Culture - Final Complete S. Aureus Mrsa Result Diagram: 12/08/16 0447 12/08/16 0447 Imaging Last Impressions Soft Tissue Ultrasound 12/08/16 0851 Signed Impressions: Service Date/Time: Thursday, December 08, 2016 08:53 - CONCLUSION: 1. Complex fluid collections in the subcutaneous tissues of the buttocks bilaterally. 2. The right-sided collection is elongated with a more linear configuration. The left-sided collection is somewhat rounded. Ashu Mueller MD Chest X-Ray 12/08/16 0000 Signed Impressions: Service Date/Time: Thursday, December 08, 2016 10:10 - CONCLUSION: 1. Increased elevation of the left hemidiaphragm may be positional although a subpulmonic loculated effusion may have a similar appearance. 2. otherwise, no significant interval change. Shlomo Marrero MD Assessment and Plan Assessment and Plan 71-year-old male with bilateral buttock abscesses. I recommend incision and drainage at the bedside possibly only of the right buttock abscess. I discussed this with him and he agrees. I'll prefer for him not to go under anesthesia unless absolutely necessary Joo,Terry JANSEN December 08, 2016 15:52
[2016-12-08 16:00] VITALS: BP 115/62; PULSE 60; RESP 17; TEMP 96.9; O2SAT 97
[2016-12-08] MEDS ORDERED: LIDOCAINE 2%/EPINEPHrine 1:100,000 30ML MDV INFIL SCH (16:30)
[2016-12-08 20:00] VITALS: BP 134/66; PULSE 60; RESP 20; TEMP 95.5; O2SAT 95
[2016-12-08] MEDS: CLINDAMYCIN INJ 600 MG in SODIUM CHLORIDE 0.9% INJ 100 ML IV SCH (20:34)
[2016-12-09] VITALS: BP 148/67; PULSE 62; RESP 17; TEMP 95.5; O2SAT 96
[2016-12-09 01:00] LABS: ANION GAP 9 MEQ/L (5-15); AST (GOT) 30 U/L (15-37); BICARBONATE 26.3 MEQ/L (21.0-32.0); BLOOD UREA NITROGEN 35 MG/DL (7-18); CHLORIDE 105 MEQ/L (98-107); GLOMERULAR FILTRATION RATE 43 ML/MIN (>89); POTASSIUM 4.5 MEQ/L (3.5-5.1); SODIUM (NA) 140 MEQ/L (136-145)
[2016-12-09 01:02] LABS: ALT (GPT) 30 U/L (12-78)
[2016-12-09 01:05] LABS: ALKALINE PHOSPHATASE 117 U/L (45-117); TOTAL BILIRUBIN ADULT 0.3 MG/DL (0.2-1.0)
[2016-12-09 02:44] VITALS: BP 137/66; PULSE 60; RESP 15; TEMP 95.3; O2SAT 95
[2016-12-09] MEDS ORDERED: BENZONATATE 100 MG CAP PO PRN (03:30)
[2016-12-09] MEDS ORDERED: RESP: ALBUTEROL 2.5 MG/3 ML NEB (PRN) INH (03:30)
[2016-12-09] MEDS: RESP: ALBUTEROL 2.5 MG/IPRATROPIUM 0.5 MG NEB (SCH) INH ×3 (03:38→20:43)
[2016-12-09] MEDS: HEPARIN SODIUM - SQ 10,000 UNITS/ML VIAL SQ SCH ×2 (03:46→15:00)
[2016-12-09 05:14] LABS: AUTOMATED NEUTROPHIL # 5.1 TH/MM3 (1.8-7.7); BASOPHIL # 0.1 TH/MM3 (0-0.2); BASOPHIL % 0.8 % (0.0-2.0); EOSINOPHIL # 0.3 TH/MM3 (0-0.4); EOSINOPHIL % 4.2 % (0.0-4.0); HEMATOCRIT 44.6 % (39.0-51.0); LYMPH % 18.3 % (9.0-44.0); LYMPHOCYTE # 1.4 TH/MM3 (1.0-4.8); MEAN CELL VOLUME 82.9 FL (80.0-100.0); MEAN CORPUSCULAR HEMOGLOBIN 26.5 PG (27.0-34.0); MEAN CORPUSCULAR HGB CONC 31.9 % (32.0-36.0); MONO % 9.7 % (0.0-8.0); PLATELET COUNT 163 TH/MM3 (150-450); RED BLOOD COUNT 5.38 MIL/MM3 (4.50-5.90); RED CELL DISTRIBUTION WIDTH 16.8 % (11.6-17.2); WHITE BLOOD COUNT 7.7 TH/MM3 (4.0-11.0)
[2016-12-09] MEDS: CLINDAMYCIN INJ 600 MG in SODIUM CHLORIDE 0.9% INJ 100 ML IV SCH ×3 (05:23→19:47)
[2016-12-09 05:24] LABS: HEMO FLAGS AUTO DIFF
[2016-12-09] MEDS: LEVOTHYROXINE SODIUM 88 MCG TAB PO SCH (05:24)
[2016-12-09 05:55] LABS: SCAN/DIFF AUTO DIFF CONFIRMED
[2016-12-09 08:00] VITALS: BP 129/73; PULSE 64; RESP 17; TEMP 97.4; O2SAT 97
--- NOTE | 2016-12-09 08:40 | HHI.FPPN ---
Subjective Remarks Patient states his shortness of breath has improved from yesterday. Not having any chest pain. Denies fever or chills. Pain at the wound site controlled with medication. He understands he may be having a bedside I&D later today by general surgery. No nausea, vomiting, diarrhea, constipation. (Hernandez Metzger MD R2) Objective Vitals Vital Signs Date Time Temp Pulse Resp B/P Pulse Ox O2 Delivery O2 Flow Rate FiO2 12/09/16 08:00 97.4 64 17 129/73 97 12/09/16 02:44 95.3 60 15 137/66 95 12/09/16 00:00 95.5 62 17 148/67 96 12/08/16 20:00 95.5 60 20 134/66 95 12/08/16 16:00 96.9 60 17 115/62 97 12/08/16 12:00 97.9 60 20 124/68 96 I/O 12/08/16 12/08/16 12/08/16 12/09/16 12/09/16 12/09/16 07:00 15:00 23:00 07:00 15:00 23:00 Intake Total 590 ml 122 ml 475 ml 300 ml 120 ml Output Total 600 ml 600 ml 550 ml Balance -10 ml 122 ml -125 ml -250 ml 120 ml Intake Oral 240 ml 120 ml 375 ml 200 ml 120 ml IV Total 350 ml 2 ml 100 ml 100 ml Output Urine Total 600 ml 600 ml 550 ml # Voids 1 # Bowel Movements 0 1 (Hernandez Metzger MD R2) Result Diagram: 12/09/16 0437 12/09/16 0437 Imaging Last Impressions Soft Tissue Ultrasound 12/08/16 0851 Signed Impressions: Service Date/Time: Thursday, December 08, 2016 08:53 - CONCLUSION: 1. Complex fluid collections in the subcutaneous tissues of the buttocks bilaterally. 2. The right-sided collection is elongated with a more linear configuration. The left-sided collection is somewhat rounded. Ashu Mueller MD Chest X-Ray 12/08/16 0000 Signed Impressions: Service Date/Time: Thursday, December 08, 2016 10:10 - CONCLUSION: 1. Increased elevation of the left hemidiaphragm may be positional although a subpulmonic loculated effusion may have a similar appearance. 2. otherwise, no significant interval change. Shlomo Marrero MD Objective Remarks GENERAL: in NAD, no resp distress, nontoxic. HEENT: NCAT, EOMI, no scleral icterus, no conjunctival injection. MMM. NECK: Supple, no meningeal signs. CV: RRR, S1 S2. No murmurs CHEST/PULM: CTAB, no crackles, no wheezes ABD/GI: +BS, soft, nontender, nondistended EXT: 2+ DP pulses. No calf tenderness. No edema. NEURO: Awake, alert. Normal muscle tone. Grossly nonfocal. SKIN: No rashes, no jaundice. PSYCH: Mood and affect are appropriate. : within the gluteal cleft, there are 2 distinct areas of abscess and cellulitis, one on left glut and one on R glut. R glut abscess with 2cm x 2 cm area of erythema and induration, with central area open from recent I&D, tender to touch. This does not cross midline. Left glut abscess measures 1cm x 1.5 cm of erythema and induration, with central area open from recent I&D, tender to touch. This does not cross midline. (Hernandez Metzger MD R2) A/P Assessment and Plan 71-year-old male diabetic with a 3 to four-day history of cellulitis/abscess which failed outpatient treatment. He will be admitted for IV antibiotics. Discharge Planning Pending improvement of abscess/cellulitis Possibly later today or tomorrow (Hernandez Metzger MD R2) Attending Attestation Patient seen and examined, discussed with resident team. I agree with assessment and management as documented and discussed with me. Pt feels breathing is better. He denies chest pain. He feels buttock abscess is the same. Continue IV clindamycin. (Hanh Lee MD) Problem List: (1) Cellulitis of buttock, left Status: Acute Plan: Gen. surgery consult for abscess I&D planned for 12/09 Clindamycin 600 mg IV every 8 hours (started 12/08); likely will need a 7-14 day total course of antibiotics from 12/06 Pain control: norco 5 pain 1-5, norco 7.5 pain 6-10 (careful with NSAID in patient with hx of CKD) Ultrasound 12/08: Complex fluid collections in the subcutaneous tissues of the buttocks bilaterally. The right-sided collection is elongated with a more linear configuration. The left-sided collection is somewhat rounded. No wound culture obtained from I&D at [facility] prior to admission Wound culture 12/06/16: MRSA Susceptibilities in the EMR Blood culture: No growth to date Wound care nursing consult Antibiotic history: Zosyn 3.375 mg IV every 6 hours (12/06/16 --> 12/07) Vancomycin (12/06-12/08) TdaP administered (2) Cellulitis of buttock, right Status: Acute Plan: see cellulitis above. (3) CKD (chronic kidney disease), stage III Status: Chronic Plan: Continue to closely monitor as the patient is on vancomycin. Monitor Is/Os. Renally dose medications if indicated. Avoid nephrotoxic agents (4) Thrombocytopenia Status: Chronic Plan: Stable No obvious active bleeding. mild. (5) Congestive heart failure (CHF) Status: Chronic Plan: Not in exacerbation. continue Lasix 40 mg by mouth daily, lisinopril (6) Carotid artery disease Status: Chronic Plan: Asymptomatic. Continue home medications. (7) Hypertension Status: Chronic Plan: Under good control. Continue home medications and monitor blood pressure with routine vitals. (8) Hyperlipidemia Status: Chronic Plan: Continue statin (9) Diabetes mellitus, type 2 Status: Chronic Plan: diet control. Monitor glucose. (10) Hypothyroidism Status: Chronic Plan: Continue home synthroid. (11) COPD (chronic obstructive pulmonary disease) Status: Chronic Plan: Continue home breathing treatments. Maintaining sats on room air. Lungs clear to auscultation. (Hernandez Metzger MD R2) Problem Qualifiers (1) Hypertension: Qualified Code: I10 - Essential hypertension (2) COPD (chronic obstructive pulmonary disease): Qualified Code: J41.0 - Simple chronic bronchitis Hernandez Metzger MD R2 December 09, 2016 08:39 Hanh Lee MD December 09, 2016 20:45
--- NOTE | 2016-12-09 08:53 | EKG ---
Date Performed: 12/09/2016 Time Performed: 01:32:25 PTAGE: 71 years EKG: ELECTRONIC ATRIAL PACEMAKER ELECTRONIC VENTRICULAR PACEMAKER ABNORMAL RHYTHM ECG PREVIOUS TRACING : 12/08/2016 17.55 DOCTOR: Maldonado Nj Interpretating Date/Time 12/09/2016 08:52:32
[2016-12-09] MEDS: ASPIRIN 81 MG CHEW TAB CHEW SCH (09:03)
[2016-12-09] MEDS: methylPREDNISolone 4 MG TAB PO SCH (09:03)
[2016-12-09] MEDS: ATORVASTATIN 40 MG TAB PO SCH (09:03)
[2016-12-09] MEDS: METOPROLOL TARTRATE 50 MG TAB PO SCH (09:03)
[2016-12-09] MEDS: LISINOPRIL 10 MG TAB PO SCH (09:03)
[2016-12-09] MEDS: DOCUSATE SODIUM 50 MG/SENNA 8.6 MG TAB PO SCH ×2 (09:04→19:47)
[2016-12-09] MEDS: FUROSEMIDE 40 MG TAB PO SCH (09:04)
[2016-12-09] MEDS: SODIUM CHLORIDE 0.9% FLUSH 10 ML FLUSH IV FLUSH SCH ×2 (09:04→19:47)
[2016-12-09] MEDS: BUDESONIDE-FORMOTEROL 160/4.5 MCG INHALER INH SCH ×2 (09:05→19:46)
--- NOTE | 2016-12-09 09:19 | EKG ---
Date Performed: 12/08/2016 Time Performed: 17:55:56 PTAGE: 71 years EKG: ELECTRONIC ATRIAL PACEMAKER ELECTRONIC VENTRICULAR PACEMAKER ABNORMAL RHYTHM ECG PREVIOUS TRACING : 12/08/2016 13.33 DOCTOR: Maldonado Nj Interpretating Date/Time 12/09/2016 09:17:47
--- NOTE | 2016-12-09 09:37 | EKG ---
Date Performed: 12/08/2016 Time Performed: 13:33:21 PTAGE: 71 years EKG: ELECTRONIC ATRIAL PACEMAKER ELECTRONIC VENTRICULAR PACEMAKER ABNORMAL RHYTHM ECG PREVIOUS TRACING : 12/06/2016 11.16 DOCTOR: Maldonado Nj Interpretating Date/Time 12/09/2016 09:36:24
[2016-12-09 12:00] VITALS: BP 116/59; PULSE 60; RESP 20; TEMP 97.4; O2SAT 99
--- NOTE | 2016-12-09 12:18 | HHI.FF ---
Face to Face Verification Diagnosis: (1) Cellulitis of buttock, left (2) Cellulitis of buttock, right Home Health Nursing Order: Medical education Signs/symptoms of disease process CHF education Wound care and dressing changes Nursing assessment with vital signs I have seen patient Naresh Llanos Jr Young on 12/09/16. My clinical findings support the need for the requested home health care services because: Ltd mobility - disease progression Patient has SOB Deconditioned w/ increased weakness Med compliance is questionable Limited ability to care for self High risk of falls I certify that my clinical findings support that this patient is homebound because: Unsafe to leave home unassisted Poor cardiac reserve Hernandez Metzger MD R2 December 09, 2016 12:17
--- NOTE | 2016-12-09 12:39 | PD.PROCEDR ---
Procedure Note Procedure Informed consent was obtained from the patient for incision and drainage of buttock abscess. The patient remained in his bed on the floor in a prone position. The right buttock was prepped and draped in sterile fashion. Tissue was infiltrated with 10cc 2% lidocaine with epinephrine. A single stab incision was made and blunt dissection performed with cotton-tipped applicator to probe the area. I was unable to express any purulent fluid. There were no areas of fluctuance palpable. The procedure was aborted and iodoform packing placed as well as a sterile dressing by the nurse. The patient tolerated the procedure well. Terry Ge MD December 09, 2016 12:39
[2016-12-09 16:00] VITALS: BP 135/80; PULSE 60; RESP 19; TEMP 98.3; O2SAT 99
[2016-12-09 20:00] VITALS: BP 118/69; PULSE 61; RESP 22; TEMP 96.7; O2SAT 96
[2016-12-10] VITALS: BP 136/75; PULSE 61; RESP 22; TEMP 96.1; O2SAT 96
[2016-12-10] MEDS: LEVOTHYROXINE SODIUM 88 MCG TAB PO SCH (05:23)
[2016-12-10] MEDS: CLINDAMYCIN INJ 600 MG in SODIUM CHLORIDE 0.9% INJ 100 ML IV SCH (05:24)
[2016-12-10] MEDS: HEPARIN SODIUM - SQ 10,000 UNITS/ML VIAL SQ SCH (05:24)
[2016-12-10 06:02] LABS: AUTOMATED NEUTROPHIL # 5.7 TH/MM3 (1.8-7.7); BASOPHIL # 0.1 TH/MM3 (0-0.2); BASOPHIL % 0.7 % (0.0-2.0); EOSINOPHIL # 0.3 TH/MM3 (0-0.4); EOSINOPHIL % 3.4 % (0.0-4.0); HEMATOCRIT 42.8 % (39.0-51.0); HEMO FLAGS DIFF FINAL; LYMPH % 16.6 % (9.0-44.0); LYMPHOCYTE # 1.3 TH/MM3 (1.0-4.8); MEAN CELL VOLUME 82.1 FL (80.0-100.0); MEAN CORPUSCULAR HEMOGLOBIN 27.1 PG (27.0-34.0); MONO % 8.5 % (0.0-8.0); NEUT % 70.8 % (16.0-70.0); PLATELET COUNT 181 TH/MM3 (150-450); RED BLOOD COUNT 5.22 MIL/MM3 (4.50-5.90); RED CELL DISTRIBUTION WIDTH 17.2 % (11.6-17.2)
[2016-12-10 06:21] LABS: ALT (GPT) 32 U/L (12-78); ANION GAP 7 MEQ/L (5-15); AST (GOT) 28 U/L (15-37); BICARBONATE 28.6 MEQ/L (21.0-32.0); BLOOD UREA NITROGEN 31 MG/DL (7-18); CHLORIDE 106 MEQ/L (98-107); GLOMERULAR FILTRATION RATE 43 ML/MIN (>89); POTASSIUM 4.1 MEQ/L (3.5-5.1); SODIUM (NA) 142 MEQ/L (136-145)
[2016-12-10 06:24] LABS: ALKALINE PHOSPHATASE 113 U/L (45-117); TOTAL BILIRUBIN ADULT 0.5 MG/DL (0.2-1.0)
[2016-12-10] MEDS: RESP: ALBUTEROL 2.5 MG/IPRATROPIUM 0.5 MG NEB (SCH) INH ×2 (07:53→12:13)
[2016-12-10 08:00] VITALS: BP 140/71; PULSE 61; RESP 18; TEMP 97; O2SAT 93
[2016-12-10] MEDS: DOCUSATE SODIUM 50 MG/SENNA 8.6 MG TAB PO SCH (09:00)
[2016-12-10] MEDS ORDERED: HYDR-3516 PO (09:39)
[2016-12-10] MEDS ORDERED: SENN1TAB PO (09:39)
[2016-12-10] MEDS ORDERED: CLIN1CAP6 PO (09:41)
--- NOTE | 2016-12-10 09:46 | HHI.FPPN ---
Subjective Remarks Patient is doing well this morning. He is looking forward to going home. Denies fever, chills, nausea, vomiting. His pain is controlled with medication. (Hernandez Metzger MD R2) Objective Vitals Vital Signs Date Time Temp Pulse Resp B/P Pulse Ox O2 Delivery O2 Flow Rate FiO2 12/10/16 08:00 97.0 61 18 140/71 93 12/10/16 00:00 96.1 61 22 136/75 96 12/09/16 20:00 96.7 61 22 118/69 96 12/09/16 16:00 98.3 60 19 135/80 99 12/09/16 12:00 97.4 60 20 116/59 99 I/O 12/09/16 12/09/16 12/09/16 12/10/16 12/10/16 12/10/16 07:00 15:00 23:00 07:00 15:00 23:00 Intake Total 300 ml 1080 ml 420 ml 420 ml Output Total 550 ml 800 ml 800 ml 600 ml Balance -250 ml 280 ml -380 ml -180 ml Intake Oral 200 ml 1080 ml 320 ml 320 ml IV Total 100 ml 100 ml 100 ml Output Urine Total 550 ml 800 ml 800 ml 600 ml # Bowel Movements 3 1 1 (Hernandez Metzger MD R2) Result Diagram: 12/10/16 0506 12/10/16 0506 Objective Remarks GENERAL: in NAD, no resp distress, nontoxic. HEENT: NCAT, EOMI, no scleral icterus, no conjunctival injection. MMM. NECK: Supple, no meningeal signs. CV: RRR, S1 S2. No murmurs CHEST/PULM: CTAB, no crackles, no wheezes ABD/GI: +BS, soft, nontender, nondistended EXT: 2+ DP pulses. No calf tenderness. No edema. NEURO: Awake, alert. Normal muscle tone. Grossly nonfocal. SKIN: No rashes, no jaundice. PSYCH: Mood and affect are appropriate. : Improved areas of erythema and induration status post I&D. (Hernandez Metzger MD R2) A/P Assessment and Plan 71-year-old male diabetic with a 3 to four-day history of cellulitis/abscess which failed outpatient treatment. He will be admitted for IV antibiotics. Discharge Planning Today with home health (Hernandez Metzger MD R2) Attending Attestation Patient seen and examined, discussed with resident team. I agree with assessment and management as documented and discussed with me. Pt feels his abscess is much better today. Home health has been arranged. D/C on clindamycin. Discussed to take entire course; discussed potential side effects. (Hanh Lee MD) Problem List: (1) Cellulitis of buttock, left Status: Acute Plan: Gen. surgery consult for abscess Status post I&D on 12/09 Continue clindamycin 300 mg by mouth every 6 hours for a 10 day course Pain control: norco 5 pain 1-5, norco 7.5 pain 6-10 (careful with NSAID in patient with hx of CKD) Imaging: Ultrasound 12/08: Complex fluid collections in the subcutaneous tissues of the buttocks bilaterally. The right-sided collection is elongated with a more linear configuration. The left-sided collection is somewhat rounded. Cultures: No wound culture obtained from I&D at [facility] prior to admission Wound culture 12/06/16: MRSA Susceptibilities in the EMR Blood culture: No growth to date Wound care nursing consult Antibiotic history: Clindamycin 600 mg IV every 8 hours (started 12/08); likely will need a 7-14 day total course of antibiotics from 12/06 Zosyn 3.375 mg IV every 6 hours (12/06/16 --> 12/07) Vancomycin (12/06-12/08) TdaP administered (2) Cellulitis of buttock, right Status: Acute Plan: see cellulitis above. (3) CKD (chronic kidney disease), stage III Status: Chronic Plan: Continue to closely monitor as the patient is on vancomycin. Monitor Is/Os. Renally dose medications if indicated. Avoid nephrotoxic agents (4) Thrombocytopenia Status: Chronic Plan: Stable No obvious active bleeding. mild. (5) Congestive heart failure (CHF) Status: Chronic Plan: Not in exacerbation. continue Lasix 40 mg by mouth daily, lisinopril (6) Carotid artery disease Status: Chronic Plan: Asymptomatic. Continue home medications. (7) Hypertension Status: Chronic Plan: Under good control. Continue home medications and monitor blood pressure with routine vitals. (8) Hyperlipidemia Status: Chronic Plan: Continue statin (9) Diabetes mellitus, type 2 Status: Chronic Plan: diet control. Monitor glucose. (10) Hypothyroidism Status: Chronic Plan: Continue home synthroid. (11) COPD (chronic obstructive pulmonary disease) Status: Chronic Plan: Continue home breathing treatments. Maintaining sats on room air. Lungs clear to auscultation. (Hernandez Metzger MD R2) Problem Qualifiers (1) Hypertension: Qualified Code: I10 - Essential hypertension (2) COPD (chronic obstructive pulmonary disease): Qualified Code: J41.0 - Simple chronic bronchitis Hernandez Metzger MD R2 Dec 10, 2016 09:46 Hanh Lee MD Dec 10, 2016 16:56
--- NOTE | 2016-12-10 09:52 | HHI.DS ---
Discharge Summary Admission Date December 06, 2016 at 13:14 Discharge Date: Dec 10, 2016 Admitting Diagnosis buttock cellulitis. Draining ulcers. (1) Cellulitis of buttock, left Diagnosis: Principal Plan: Gen. surgery consult for abscess Status post I&D on 12/09 Continue clindamycin 300 mg by mouth every 6 hours for a 10 day course Pain control: norco 5 pain 1-5, norco 7.5 pain 6-10 (careful with NSAID in patient with hx of CKD) Imaging: Ultrasound 12/08: Complex fluid collections in the subcutaneous tissues of the buttocks bilaterally. The right-sided collection is elongated with a more linear configuration. The left-sided collection is somewhat rounded. Cultures: No wound culture obtained from I&D at [facility] prior to admission Wound culture 12/06/16: MRSA Susceptibilities in the EMR Blood culture: No growth to date Wound care nursing consult Antibiotic history: Clindamycin 600 mg IV every 8 hours (started 12/08); likely will need a 7-14 day total course of antibiotics from 12/06 Zosyn 3.375 mg IV every 6 hours (12/06/16 --> 12/07) Vancomycin (12/06-12/08) TdaP administered (2) Cellulitis of buttock, right Diagnosis: Principal Plan: see cellulitis above. (3) CKD (chronic kidney disease), stage III Diagnosis: Secondary Plan: Continue to closely monitor as the patient is on vancomycin. Monitor Is/Os. Renally dose medications if indicated. Avoid nephrotoxic agents (4) Thrombocytopenia Diagnosis: Secondary Plan: Stable No obvious active bleeding. mild. (5) Congestive heart failure (CHF) Diagnosis: Secondary Plan: Not in exacerbation. continue Lasix 40 mg by mouth daily, lisinopril (6) Carotid artery disease Diagnosis: Secondary Plan: Asymptomatic. Continue home medications. (7) Hypertension Diagnosis: Secondary Plan: Under good control. Continue home medications and monitor blood pressure with routine vitals. (8) Hyperlipidemia Diagnosis: Secondary Plan: Continue statin (9) Diabetes mellitus, type 2 Diagnosis: Secondary Plan: diet control. Monitor glucose. (10) Hypothyroidism Diagnosis: Secondary Plan: Continue home synthroid. (11) COPD (chronic obstructive pulmonary disease) Diagnosis: Secondary Plan: Continue home breathing treatments. Maintaining sats on room air. Lungs clear to auscultation. Consultants Gen. surgery Procedures I&D abscess Brief History 71-year-old male with history of diabetes presents with buttock cellulitis abscess which started approximately 3-4 days ago. Patient states he went to the [facility] in [place] ([facility]); at the [facility], they lanced both abscesses. [facility] to [facility] to find [facility] and [facility], but no one responded because they are on vacation for the weekend. They also put him on Keflex 500 mg twice a day. He's been taking the medication as prescribed. However, approximately 2 days ago he was in 10 out of 10 sharp, nonradiating, pain at the site. He took some of his pain pills and that helped somewhat. He denies fevers or chills. However he has been having the shakes and some sweaty episodes. This morning, he says his pain intensified and that is why he came to the hospital. Currently, he is sitting on a doughnut, and his pain is much relieved. However if he starts to move or put pressure on the site, his pain returns. CBC/BMP: 12/10/16 0506 12/10/16 0506 Significant Findings Laboratory Tests Test 12/08/16 12/09/16 12/09/16 12/10/16 04:47 00:17 04:37 05:06 Neutrophils (%) (Auto) 71.4 % 70.8 % (16.0-70.0) (16.0-70.0) Monocytes (%) (Auto) 8.3 % (0.0-8.0) 9.7 % (0.0-8.0) 8.5 % (0.0-8.0) Blood Urea Nitrogen 30 MG/DL (7-18) 35 MG/DL (7-18) 31 MG/DL (7-18) Creatinine 1.42 MG/DL 1.60 MG/DL 1.65 MG/DL 1.60 MG/DL (0.60-1.30) (0.60-1.30) (0.60-1.30) (0.60-1.30) Estimat Glomerular Filtration 49 ML/MIN (>89) 43 ML/MIN (>89) 42 ML/MIN (>89) 43 ML/MIN (>89) Rate Random Glucose 117 MG/DL 142 MG/DL 131 MG/DL (74-106) (74-106) (74-106) B-Type Natriuretic Peptide 993 PG/ML (0-100) Total Protein 6.3 GM/DL (6.4-8.2) Albumin 2.5 GM/DL 2.6 GM/DL (3.4-5.0) (3.4-5.0) Mean Corpuscular Hemoglobin 26.5 PG (27.0-34.0) Mean Corpuscular Hemoglobin 31.9 % Concent (32.0-36.0) Eosinophils (%) (Auto) 4.2 % (0.0-4.0) Imaging Last Impressions Soft Tissue Ultrasound 12/08/16 0851 Signed Impressions: Service Date/Time: Thursday, December 08, 2016 08:53 - CONCLUSION: 1. Complex fluid collections in the subcutaneous tissues of the buttocks bilaterally. 2. The right-sided collection is elongated with a more linear configuration. The left-sided collection is somewhat rounded. Ashu Mueller MD Chest X-Ray 12/08/16 0000 Signed Impressions: Service Date/Time: Thursday, December 08, 2016 10:10 - CONCLUSION: 1. Increased elevation of the left hemidiaphragm may be positional although a subpulmonic loculated effusion may have a similar appearance. 2. otherwise, no significant interval change. Shlomo Marrero MD PE at Discharge GENERAL: in NAD, no resp distress, nontoxic. HEENT: NCAT, EOMI, no scleral icterus, no conjunctival injection. MMM. NECK: Supple, no meningeal signs. CV: RRR, S1 S2. No murmurs CHEST/PULM: CTAB, no crackles, no wheezes ABD/GI: +BS, soft, nontender, nondistended EXT: 2+ DP pulses. No calf tenderness. No edema. NEURO: Awake, alert. Normal muscle tone. Grossly nonfocal. SKIN: No rashes, no jaundice. PSYCH: Mood and affect are appropriate. : Improved areas of erythema and induration status post I&D. Hospital Course Patient was started on broad-spectrum antibiotics as of infection in a diabetic patient. Vancomycin and Zosyn was started on day 1. Wound cultures from [facility] were not obtained. Wound cultures from the ER grew MRSA infection. Zosyn was discontinued and vancomycin remained. The infection was susceptible to clindamycin. He was started on IV clindamycin. An ultrasound was obtained on day #3 which showed abscess. Gen. surgery was consulted and performed an I&D on 12/09. On hospital day #4, his erythema and fluctuance at the wound site looked much improved from prior hospital days. It was deemed that he wouldn't no longer benefit from his hospital stay. We had wound care nursing throughout his hospital stay. He will go home with home health wound care. Case management helping provide disposition. He will be continued on clindamycin 300 mg for a total of 10 more days. Pt Condition on Discharge: Fair Discharge Disposition: Disch w/ Home Health Serv Discharge Instructions DIET: Follow Instructions for: Heart Healthy Diet Activities you can perform: Regular-No Restrictions, See Additionl Instruction Other Activity Instructions: Per PT Follow up Referrals: PCP Follow-up - 1 Week New Medications: Clindamycin (Clindamycin) 300 Mg Cap 300 MG PO Q6H Infection #40 Ref 0 CAP Hydrocodone-Acetaminophen (Hydrocodone-Acetaminophen) 5-325 mg Tab 1 TAB PO Q4H PRN PAIN SCALE 6 TO 10 #21 TAB Sennosides-Docusate Sodium (Senna Plus 8.6-50 mg) 1 Tab Tab 1 TAB PO BID #30 TAB Continued Medications: Aspirin (Aspirin) 81 Mg Chew 81 MG CHEW DAILY Ref 0 TAB Budesonide-Formoterol Inh (Symbicort Inh) 160-4.5 Mcg/Act Aero 1 PUFF INH Q12HR #1 INHALER Furosemide (Furosemide) 40 Mg Tab 40 MG PO DAILY Blood Pressure Management #30 Ref 0 TAB Ibuprofen (Ibuprofen) 200 Mg Cap 200 MG PO DAILY PRN pain Ref 0 CAP Ipratropium-Albuterol Inh (Combivent Respimat Inh) 20-100 Detention/Act Aero 1 PUFF INH QID Asthma Management #1 Ref 0 INHALER Levothyroxine (Synthroid) 88 Mcg Tab 88 MCG PO DAILY Thyroid #30 Ref 0 TAB Lisinopril (Lisinopril) 10 Mg Tab 10 MG PO DAILY #30 Ref 0 TAB Metoprolol Tartrate (Metoprolol Tartrate) 50 Mg Tab 50 MG PO DAILY #30 Ref 0 TAB Niacin ER (Slo-Niacin) 500 Mg Tab 500 MG PO DAILY Cholesterol Management #30 Ref 0 TAB Rosuvastatin (Crestor) 20 Mg Tab 20 MG PO DAILY Cholesterol Management #30 Ref 0 TAB Tramadol (Tramadol) 50 Mg Tab 50 MG PO Q8H PRN PAIN Ref 0 TAB Discontinued Medications: Methylprednisolone (Methylprednisolone) 8 Mg Tab 4 MG PO DAILY Ref 0 TAB Hernandez Metzger MD R2 Dec 10, 2016 09:51
[2016-12-10] MEDS: METOPROLOL TARTRATE 50 MG TAB PO SCH (10:11)
[2016-12-10] MEDS: ASPIRIN 81 MG CHEW TAB CHEW SCH (10:11)
[2016-12-10] MEDS: FUROSEMIDE 40 MG TAB PO SCH (10:11)
[2016-12-10] MEDS: methylPREDNISolone 4 MG TAB PO SCH (10:11)
[2016-12-10] MEDS: LISINOPRIL 10 MG TAB PO SCH (10:12)
[2016-12-10] MEDS: ATORVASTATIN 40 MG TAB PO SCH (10:12)
[2016-12-10] MEDS: SODIUM CHLORIDE 0.9% FLUSH 10 ML FLUSH IV FLUSH SCH (10:13)
[2016-12-10] MEDS: BUDESONIDE-FORMOTEROL 160/4.5 MCG INHALER INH SCH (10:14)
[2016-12-10 12:00] VITALS: BP 141/64; PULSE 60; RESP 20; TEMP 96.8; O2SAT 96
== END 2016-12-10 13:17 | disposition home health service (06) | DRG 580 ==
LOC: NEPD 09:55 → NEDA 13:14 → N07B 15:46
PROVIDERS: ADMIT Family Medicine; ATTEND Family Medicine
PROC: 0J990ZZ Drainage of Buttock Subcutaneous Tissue and Fascia, Open Approach (ICD-10-PCS; principal; 2016-12-09)
DX: L03.317 Cellulitis of buttock (principal); I13.0 Hypertensive heart and chronic kidney disease with heart failure and stage 1 through stage 4 chronic kidney disease, or unspecified chronic kidney disease; E11.22 Type 2 diabetes mellitus with diabetic chronic kidney disease; D69.6 Thrombocytopenia, unspecified; I50.22 Chronic systolic (congestive) heart failure; N18.3 Chronic kidney disease, stage 3 (moderate); I25.810 Atherosclerosis of coronary artery bypass graft(s) without angina pectoris; B95.62 Methicillin resistant Staphylococcus aureus infection as the cause of diseases classified elsewhere; E03.9 Hypothyroidism, unspecified; E78.5 Hyperlipidemia, unspecified; Z95.1 Presence of aortocoronary bypass graft; I25.2 Old myocardial infarction; J44.9 Chronic obstructive pulmonary disease, unspecified; K21.9 Gastro-esophageal reflux disease without esophagitis; L02.31 Cutaneous abscess of buttock; Z79.82 Long term (current) use of aspirin; Z86.73 Personal history of transient ischemic attack (TIA), and cerebral infarction without residual deficits; Z87.891 Personal history of nicotine dependence; Z95.810 Presence of automatic (implantable) cardiac defibrillator; F43.10 Post-traumatic stress disorder, unspecified; Z23 Encounter for immunization
CPT/HCPCS: 71010; 76999; 80048; 80053; 81001; 82565; 83880; 84484; 85025; 85610; 85730; 86403; 87040; 87070; 87147; 87186; 87205; 90715; 93005; 94640; 94664; 99285; J1644; J1940; J2543; J3370; J7050; J7509